=== PATIENT | male | born 1945 | race Caucasian/White ===

== ENCOUNTER 2018-09-07 09:21 | Outpatient (CLI) | payer OTHER, SELFPAY ==
[2018-09-07 10:35] LABS: CREATININE 0.94 mg/dL (0.70-1.30); Glucose 124 mg/dL (70-100); Potassium 4.2 mmol/L (3.5-5.1)
== END 2018-09-07 09:41 ==
PROVIDERS: PCP Emergency Medicine; Visit Provider General Practice
DX: R73.03 Prediabetes (principal); I10 Essential (primary) hypertension
CPT/HCPCS: 36415; 82947; 82565; 84132

== ENCOUNTER 2019-08-22 10:01 | Outpatient (CLI) | payer OTHER, SELFPAY ==
--- NOTE | 2019-08-22 | DI.RAD_ITS ---
EXAM: XR CHEST 2V PA LATERAL CLINICAL HISTORY: COUGH TECHNIQUE: 2D digital imaging was performed. COMPARISON: CHEST 2 VIEWS PA,LAT from 01/14/2010 FINDINGS: MEDIASTINUM: Normal. HEART: Normal. PULMONARY VASCULATURE: Normal. LUNGS: Clear. PLEURAL SPACE: No pleural effusion or pneumothorax. BONE:Unremarkable. OTHER FINDINGS:Normal. IMPRESSION: No acute pulmonary findings. DATA REPOSITORY: RADIATION DOSE DELIVERED:
== END 2019-08-22 10:21 ==
PROVIDERS: PCP General Practice; Visit Provider Physician Assistant
DX: R05 Cough (principal)
CPT/HCPCS: 71046

== ENCOUNTER 2019-08-25 10:43 | Outpatient (REF) | payer OTHER, SELFPAY ==
[2019-08-25 16:08] LABS: Anion Gap 6.7 mmol/L (3-11); BUN 14 mg/dL (7-18); CO2 30.3 mmol/L (21.0-32.0); CREATININE 1.12 mg/dL (0.70-1.30); Calcium 8.6 mg/dL (8.5-10.1); Calculated LDL 93 mg/dL (<100); Chloride 102 mmol/L (98-107); Cholesterol 160 mg/dL (<200); Glucose 237 mg/dL (74-106); HDL Cholesterol 44 mg/dL (40-60); Potassium 4.1 mmol/L (3.5-5.1); Sodium 139 mmol/L (136-145); Triglyceride 118 mg/dL (<150)
[2019-08-25 16:42] LABS: NT-proBNP 11 pg/mL (<300)
== END 2019-08-25 11:03 ==
LOC: NCHCN 10:43
PROVIDERS: PCP Physician Assistant; Visit Provider Physician Assistant
DX: R06.09 Other forms of dyspnea (principal)
CPT/HCPCS: 80048; 80061; 83880

== ENCOUNTER 2019-09-01 17:36 | Outpatient (REF) | payer OTHER, SELFPAY ==
[2019-09-04 18:41] LABS: Hemoglobin A1C 6.3 % (3.8-5.6)
== END 2019-09-01 17:56 ==
LOC: NCHCN 17:36
PROVIDERS: PCP Physician Assistant; Visit Provider Physician Assistant
DX: R73.9 Hyperglycemia, unspecified (principal)
CPT/HCPCS: 83036

== ENCOUNTER 2019-09-07 00:42 | Outpatient (CLI) | payer OTHER, SELFPAY ==
--- NOTE | 2019-09-07 | DI.NM_ITS ---
APPROVED REPORT Exam: Pharmacologic Patient Location: Out-Patient Room/Bed: Stress Nurse: Gaye Ross RN BMI: 43.59 Baseline Rhythm: Sinus Rhythm Indications: Dyspnea on exertion Medical History Cardiac Medications: Metoprolol. Pravastatin. Lisinopril. Aspirin. Amlodipine., Allergies: No known drug allergies Cardiac Risk Factors: HTN, Hyperlipidemia, DM Pretest Chest Pain Characteristics: Dyspnea Exercise History: Indeterminate Physical Disabilities: Back Lung Sounds: Clear to auscultation Heart Sounds: Regular Stress Test Details Test: Pharmacologic stress testing performed using 0.4 mg of regadenoson per 5 mL given IV over 10 s econds. Nuclear Acquisition: Rest Tc-99m/Stress Tc-99m 1 day Rest Isotope: Tc-99m Sestamibi. Dose: 12.0 Date: 09/07/2019 Injection Time: 0830 Stress Isotope: Tc-99m Sestamibi. Dose: 37.6 Date: 09/07/2019 Injection Time: 1025 HR Resting HR Supine: 83 bpm Max Heart Rate (APMHR): 148 bpm Target HR (85% APMHR): 125 bpm Max HR Achieved: 94 bpm % of APMHR: 63 Recovery HR: 91 bpm HR response to stress: Normal HR response to stress BP Resting BP Supine: 140/88 mmHg Max BP: 148/80 mmHg BP response to stress: Normal blood pressure response to stress. ECG Resting ECG: Sinus Rhythm Stress ECG: Sinus Rhythm ST Change: No significant ST segment changes post lexiscan injection Arrhythmia: None Recovery ECG: Sinus Rhythm Clinical Stress Symptoms: No significant side effects post lexiscan injection. Exercise duration: 6 min47 sec Stress ECG Conclusion 1. A pharmacological stress test. 2. The patient no symptoms suggestive of ischemia. 3. The EKG portion of this exam is nondiagnostic. Stress Test Summary STAGE HR BP Symptoms NOTES Supine 83 140/88 1 min post Lexiscan injection 94 144/86 3 min post Lexiscan injection 93 148/80 6 min post Lexiscan injection 91 144/88 MPI Conclusion Ejection fraction with stress was 49%. There were no wall motion abnormalities. There were no significant perfusion defects visualized on the imaging portion of this exam. This represents a normal SPECT stress test.
[2019-09-07] MEDS: Regadenoson 0.4 MG/5 ML SYR IVP (10:08)
== END 2019-09-07 01:02 ==
PROVIDERS: PCP Physician Assistant; Visit Provider Physician Assistant
DX: R06.09 Other forms of dyspnea (principal); I10 Essential (primary) hypertension; E78.5 Hyperlipidemia, unspecified; E11.9 Type 2 diabetes mellitus without complications
CPT/HCPCS: 78452; 93016; 93018; 93017; J2785

== ENCOUNTER 2020-02-12 18:09 | Outpatient (REF) | payer OTHER, SELFPAY ==
[2020-02-12 19:05] LABS: Hemoglobin A1C 6.4 % (<5.7)
== END 2020-02-12 18:29 ==
LOC: NCHCN 18:09
PROVIDERS: PCP Physician Assistant; Visit Provider Physician Assistant
DX: E11.9 Type 2 diabetes mellitus without complications (principal)
CPT/HCPCS: 83036

== ENCOUNTER 2020-04-15 08:46 | Emergency (ER) | payer OTHER, SELFPAY ==
[2020-04-15] VITALS (11 sets, daily range): BP systolic 133–149; BP diastolic 81–100; PULSE 81–90; RESP 16–26; TEMP 36.5; O2SAT 93–95
--- NOTE | 2020-04-15 08:48 | ED.GENADUL_ITS ---
Discharge Plan Disposition Patient Disposition: HOME Condition: Improving Discharge Details Clinical Impression: Contusion of rib on left side Primary Care Provider: Jonathon Frederick ED Provider: Deborah Glover Home Meds and New Rx's Prescriptions: New oxycodone 5 mg tablet 5 mg PO Q6H PRN (Reason: pain) Qty: 10 RF: 0 Continued multivitamin [Once Daily] 1 EACH tablet 1 tab PO DAILY RF: 0 latanoprost [Xalatan] 2.5 ML drops 1 drp Ophthalmic DIRECTED RF: 0 aspirin [Aspirin Low-Strength] 81 MG tablet,chewable 81 mg PO DAILY RF: 0 pravastatin [Pravachol] 20 MG tablet 1 tab PO DAILY Qty: 90 RF: 4 lisinopril 20 MG tablet 1 tab PO DAILY Qty: 90 RF: 4 amlodipine [Norvasc] 5 MG tablet 1 tab PO QAM Qty: 90 RF: 4 allopurinol 100 MG tablet 2 tab PO DAILY Qty: 180 RF: 4 timolol maleate [Timoptic] 5 ML drops 1 drp Ophthalmic HS RF: 0 ibuprofen 200 MG tablet 200 mg PO DIRECTED PRNRF: 0 metoprolol succinate 50 mg tablet extended release 24 hr 50 mg PO DAILY RF: 0 furosemide 20 mg tablet 20 mg PO DAILY RF: 0 Discharge Instructions Instructions: Rib Fracture (ED), Rib Contusion (ED) Additional Instructions: Your x-ray was negative for rib fracture, pneumonia or lung collapse. X-rays may not see a rib fracture but clinically you may have a rib fracture. A rib fracture is treated the same as a rib bruise with pain control, incentive spirometry to ensure that you are taking deep breath, and ice. Use the incentive parameter as directed to ensure that you are taking deep breaths to prevent pneumonia. Alternate tylenol and motrin as needed and directed for pain. Take the oxycodone for pain not relieved with Tylenol and Motrin. You can also continue Lidoderm patches [id number] as needed and directed for pain. Follow-up with your primary care doctor in 1 week. Return to the emergency department with any worsening or new concerning symptoms. Discharge Data Discharge Date/Time-TO BE ENTERED AT DEPARTURE: 04/15/20 11:04 Discharge Physician: Deborah Glover Medical Decision Making 74-year-old male with a history of hypertension, hyperlipidemia, obesity presents with left lower rib pain after pushing against a toilet while fixing it 3 days ago. Vitals within normal limits. He appears nontoxic. His tenderness to palpation of the left anterior inferior ribs without evidence of trauma, crepitus or cellulitis. Lungs are clear bilaterally. His abdomen is soft and nontender. Suspect most likely rib contusion versus fracture. Will obtain a chest and rib x-ray to rule out pneumothorax or pneumonia and place Lidoderm patch, give p.o. Motrin and oxycodone and reassess. is driving patient home. Ribs and PA lateral chest x-ray negative for rib fracture and does note platelike atelectasis which could be consistent with decreased aeration due to pain with deep breath. No pneumothorax or pneumonia. Patient reassessed and he had significant improvement in pain. Patient feels comfortable for discharge home. He was given incentive spirometer. Advised to follow up with the primary care doctor for re-evaluation. Usual and customary return precautions given prior to discharge. Medical Records Medical records reviewed: Yes I reviewed the patient's medical records. Imaging Data Radiologic Study: Radiologist's impression: XR RIBS LT W PA LAT CHEST CLINICAL HISTORY: L lower anterior rib pain, r/o fx TECHNIQUE: 2D digital imaging was performed. COMPARISON: CR XR CHEST 2V PA LATERAL from 08/22/2019 FINDINGS: No obvious left rib fractures. Heart size upper normal. Platelike atelectasis noted left lung base but no consult lung infiltrates. No pneumothorax. No pleural effusions. IMPRESSION: 1. No left rib fracture noted. 2. Platelike atelectasis in the left lung base noted. There is no pneumothorax. ECG Data Attestation: I personally reviewed and interpreted this ECG (s) as follows: Interpretation: Rate of 85, sinus, borderline ST elevation in V1 and V2 which has been seen in previous EKG from 2014. No other acute ST findings. GA 174. QRS 93. QTc 442. HPI General Mode of arrival: ambulatory . Date/Time Provider Initiated Documentation: 04/15/20 08:47 . Limitations to Documentation: no limitations . Information obtained by: patient . HPI Narrative: Patient is a 74-year-old male who presents with left rib pain for the past 4 days after leaning over fixing a toilet and feeling a crack against his ribs. 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 He states he has had pain with movement and deep breath since then. He has taken ibuprofen and Tylenol for pain without relief. He denies any fever, nausea, vomiting, abdominal pain, diarrhea and states he has been able to eat normally. Related Data Home Medications Medication Instructions Recorded Confirmed latanoprost [Xalatan] 1 drp OPHTHALMIC DIRECTED drp 09/12/12 04/15/20 multivitamin [Once Daily] 1 tab PO DAILY 09/12/12 04/15/20 timolol maleate [Timoptic] 1 drp OPHTHALMIC HS 11/15/13 04/15/20 ibuprofen 200 mg PO DIRECTED PRN 11/16/13 04/15/20 aspirin [Aspirin Low-Strength] 81 mg PO DAILY tab-cap 11/02/14 04/15/20 pravastatin [Pravachol] 1 tab PO DAILY #90 tab-cap 03/02/17 04/15/20 allopurinol 2 tab PO DAILY #180 tab 09/21/17 04/15/20 amlodipine [Norvasc] 1 tab PO QAM #90 tab 09/21/17 04/15/20 lisinopril 1 tab PO DAILY #90 tab 09/21/17 04/15/20 furosemide 20 mg PO DAILY 04/15/20 04/15/20 metoprolol succinate 50 mg PO DAILY 04/15/20 04/15/20 oxycodone 5 mg PO Q6H PRN #10 tab 04/15/20 Previous Rx's Medication Instructions Recorded pravastatin [Pravachol] 1 tab PO DAILY #90 tab-cap 03/02/17 allopurinol 2 tab PO DAILY #180 tab 09/21/17 amlodipine [Norvasc] 1 tab PO QAM #90 tab 09/21/17 lisinopril 1 tab PO DAILY #90 tab 09/21/17 oxycodone 5 mg PO Q6H PRN #10 tab 04/15/20 Allergies Allergy/AdvReac Type Severity Reaction Status Date / Time No Known Allergies Allergy Unverified 04/15/20 08:59 Review of Systems All systems reviewed & are unremarkable except as noted in HPI and below Constitutional Constitutional: Reports as per HPI, Denies chills and Denies fever(s) Eyes Eyes: Denies blurry vision ENT Ears, Nose, Mouth, and Throat: Denies dizziness, Denies sore throat and Denies throat swelling Cardiovascular Cardiovascular: Denies chest pain and Denies dyspnea Respiratory Respiratory: Denies cough and Denies dyspnea Gastrointestinal Gastrointestinal: Denies abdominal pain, Denies diarrhea and Denies vomiting Genitourinary Genitourinary: Denies hematuria and Denies dysuria Musculoskeletal Musculoskeletal: Denies back pain, Denies numbness and Reports other (L rib pain) Integumentary/Breasts Skin/Breast: Denies lesions and Denies rash Neurologic Neurologic: Denies dizziness, Denies localized weakness and Denies numbness Allergic/Immunologic Allergic/Immunologic: Denies throat swelling [facility] Medical History (Updated 04/15/20 @ 10:40 by Deborah Glover DO) Alcohol abuse Glaucoma Gout Hyperlipidemia (09/13/12) Hypertension Impotence Obesity Osteoarthritis left leg Rotator cuff syndrome (10/05/08) Tubular adenoma 5 tubular adenomas 2008 1 TUBULAR ADENOMA 2012 tubular adenoma with focal high grade dysplasia, 12/11/16; DR. CORTES Surgical History Colonoscopy - MAC (12/02/11) Colonoscopy - MAC (12/11/16) hernia repair left Kidney Stone Extraction Family History Mother Diabetes Stroke Father Myocardial infarction Sister Hypothyroidism Grandfather Myocardial infarction Grandfather Myocardial infarction Grandmother No problems noted. Grandmother No problems noted. Brother No problems noted. Social History Smoking/Tobacco Use Status: Never Smoking risk assessment performed?: Yes Drug use: Never Substance use type: does not use Exam Const General: cooperative, healthy appearing and no acute distress [facility] Head: normal to inspection Face and sinus: normal facial exam Eyes General: appearance normal, both eyes and all related structures EOM: EOM intact bilaterally Neck Neck: normal visual inspection and No submandibular swelling Lymphatic: no lymphadenopathy noted Chest Chest: normal inspection of the chest and tenderness Chest/axillae images: 1. Tenderness to palpation of L anterior inferior chest w/o crepitus, edema, erythema, ecchymoses, or abrasion. Resp Effort & Inspection: normal respiratory effort and able to speak in complete sentences Auscultation: clear to auscultation bilaterally Cardio Rate: regular rate Rhythm: regular rhythm GI Inspection: normal to inspection, no abdominal wall ecchymosis and obesity Palpation: soft, not firm, not rigid and nontender Auscultation: normal bowel sounds Skin General skin exam: no rashes or lesions noted Neuro General: patient alert, patient awake and patient oriented x3 Cognition: normal cognition Speech: speech normal Motor: muscle tone normal throughout Sensory Exam: no sensory deficits noted Extrem General: normal to inspection, full ROM, capillary refill normal, no calf tenderness bilaterally and no edema Psych Appearance: grossly normal Mental Status: mental status grossly normal Speech and Movement: speech and movement normal Affect: normal affect
--- NOTE | 2020-04-15 09:00 | RT.EKG_ITS ---
APPROVED REPORT Exam: Resting ECG Patient Location: E HR:85 bpm ECG Measurements Heart Rate [address] 174 P 24 QRSd 93 QRS 49 QT 371 T 49 QTc 442 Conclusion Sinus rhythm...normal P axis, V-rate 60- [address] elevation, anterior leads...ST >0.15mV in V1-V4. No STEMI. No significant change compared to previous 2013.
--- NOTE | 2020-04-15 09:15 | DI.RAD_ITS ---
EXAM: XR RIBS LT W PA LAT CHEST CLINICAL HISTORY: L lower anterior rib pain, r/o fx TECHNIQUE: 2D digital imaging was performed. COMPARISON: CR XR CHEST 2V PA LATERAL from 08/22/2019 FINDINGS: No obvious left rib fractures. Heart size upper normal. Platelike atelectasis noted left lung base but no consult lung infiltrates. No pneumothorax. No pleural effusions. IMPRESSION: 1. No left rib fracture noted. 2. Platelike atelectasis in the left lung base noted. There is no pneumothorax. DATA REPOSITORY: RADIATION DOSE DELIVERED:
[2020-04-15] MEDS: Ibuprofen 600 MG TAB PO (09:29)
[2020-04-15] MEDS: Lidocaine 5% Patch 1 PATCH TP (09:29)
[2020-04-15] MEDS: oxyCODONE 5 MG TAB PO (09:30)
== END 2020-04-15 11:04 | disposition home or self-care (01) ==
PROVIDERS: Emergency Provider Physician Assistant; PCP Physician Assistant
DX: S20.212A Contusion of left front wall of thorax, initial encounter (principal); X50.9XXA Other and unspecified overexertion or strenuous movements or postures, initial encounter; J98.11 Atelectasis; I10 Essential (primary) hypertension
CPT/HCPCS: 93005; 99284; 71046; 71100; 93010

== ENCOUNTER 2020-11-27 13:54 | Outpatient (CLI) | payer OTHER, SELFPAY ==
--- NOTE | 2020-11-27 | DI.CT_ITS ---
Exam(s) CT RENAL COLIC WO EXAM: CT RENAL COLIC WO CLINICAL HISTORY: RENAL COLIC, N23, LT RENAL COLIC, SUSPECT STONE. TECHNIQUE: Imaging Protocol: Axial computed tomography images with coronal and sagittal reformatted images were created and reviewed CONTRAST MATERIAL: Intravenous: none Oral: None COMPARISON: Prior CT scan December 2015 FINDINGS: VISUALIZED LUNG BASES: No nodules nor pleural effusions evident. ABDOMEN: There is no ascites. LIVER: There are no obvious focal hepatic lesions evident of this noninfused study. GALLBLADDER/BILIARY: There are multiple gallstones again noted in the gallbladder lumen. Gallbladder is not distended nor edematous. There is no pericholecystic fluid. The CBD is not dilated. PANCREAS: No evidence of pancreatic mass nor dilatation of the pancreatic duct. SPLEEN: Spleen is not enlarged. No obvious intrasplenic lesions. ADRENALS: There are no significant adrenal masses. KIDNEYS:Previously present calculi in the right kidney no longer seen no hydronephrosis nor hydrouret er nor calculi in urinary bladder. There are cysts again noted in the left kidney as well as multipl e calculi seen within the left kidney now evident. Left ureter is not dilated but there is some stre aking around it and there is a calculus in the left ureter which measures 5 x 4 millimeters, this in the pelvic ureter adjacent to the iliac vessels. Ureter below this level is not dilated. Ureteroves ical junction unremarkable there are no calculi in the nondistended urinary bladder.. ABDOMINAL AORTA: Abdominal aorta is not enlarged. LYMPH NODES: There is no retroperitoneal nor paraaortic adenopathy. ABDOMINAL WALL: No evidence of significant anterior abdominal wall hernia. GI: There is no evidence of bowel obstruction, free air, nor abscess. PELVIS: LYMPH NODES: There is no intrapelvic nor inguinal adenopathy. GI: No evidence of appendicitis.Again noted is sigmoid diverticulosis but without obvious acute diver ticulitis evident at this time. URINARY BLADDER: No calculi nor obvious masses evident REPRODUCTIVE: Prostate size upper normal. Seminal vesicles unremarkable. OSSEOUS: No significant osseous lesions. Chronic degenerative disc disease L4-5 level with advanced disc space narrowing at this level and pos terior bony ridging. IMPRESSION: 1. There is a 5 millimeter calculus within the left ureter at the level of the iliac vessels. There is mild dilatation of collecting system above this level and [place] ureteral streaking. No other calcu li within the left ureter nor within the urinary bladder. However, there are 2 remaining calculi in left kidney, this in addition to previously described prominent cysts in left kidney. 2. Previously present calculi in the opposite-right kidney are no longer seen. 3. Cholelithiasis. Multiple gallstones. No evidence of acute cholecystitis nor dilatation of the bi liary tree. 4. Sigmoid diverticulosis but no evidence of obvious acute diverticulitis. RADIATION DOSE DELIVERED: 1,353.5mGy.cm Total DLP DATA REPOSITORY: All CT scans at this facility are submitted to the National Radiology Data Registry (NRDR) Dose Index Registry (DIR) with the [employer] (ACR). RADIATION OPTIMIZATION: All CT scans at this facility use at least one of these dose optimization te chniques: automated exposure control; mA and/or kV adjustment per patient size (includes targeted exa ms where dose is matched to clinical indication); or iterative reconstruction.
== END 2020-11-27 14:14 ==
PROVIDERS: PCP Physician Assistant; Visit Provider Physician Assistant
DX: N23 Unspecified renal colic (principal); N20.2 Calculus of kidney with calculus of ureter; K80.20 Calculus of gallbladder without cholecystitis without obstruction; K57.30 Diverticulosis of large intestine without perforation or abscess without bleeding; N28.1 Cyst of kidney, acquired
CPT/HCPCS: 74176

== ENCOUNTER 2021-01-28 18:27 | Outpatient (REF) | payer OTHER, SELFPAY ==
[2021-01-28 17:23] LABS: COMMENT (LAB VIEW ONLY) 223.56 mg/dL
== END 2021-01-28 18:28 | disposition home or self-care (01) ==
LOC: NCHCN 18:27
PROVIDERS: PCP Physician Assistant; Visit Provider Physician Assistant
DX: E11.9 Type 2 diabetes mellitus without complications (principal); I10 Essential (primary) hypertension; E78.5 Hyperlipidemia, unspecified
CPT/HCPCS: 82043; 82570

== ENCOUNTER → 2021-10-03 10:19 | Outpatient (BNVA) | payer MEDICARE, SELFPAY | PROVIDERS: PCP Physician Assistant; Referring Provider Physician Assistant; Visit Provider Physical Therapy Assistant | DX: Z12.11 Encounter for screening for malignant neoplasm of colon (principal); Z86.010 Personal history of colon polyps ==

== ENCOUNTER 2021-10-13 08:16 | Day surgery (SDC) | payer MEDICARE, SELFPAY ==
--- NOTE | 2021-10-13 06:24 | W.ANESPRE ---
General Info Date of Service Date Performed: 10/13/21 Height: 5 ft 5 in Weight: 112.718 kg Body Mass Index (BMI): 41.3 Surgical Procedure: Operation Date: 10/13/21 09:50 Proposed Procedure Side Surgeon jorge Jameson MD Meds Allergies and Home Medications Allergies Allergy/AdvReac Type Severity Reaction Status Date / Time No Known Allergies Allergy Unverified 10/13/21 08:36 Home Medication Medication Instructions Recorded latanoprost 0.005 % eye drops 1 drp ophthalmic (eye) DIRECTED 09/12/12 (Xalatan) multivitamin (Once Daily tablet) 1 tab PO DAILY 09/12/12 timolol maleate 0.25 % eye drops 1 drp ophthalmic (eye) HS 11/15/13 (Timoptic) ibuprofen 200 mg tablet 200 mg PO DIRECTED PRN 11/16/13 aspirin 81 mg chewable tablet 81 mg PO DAILY 11/02/14 (Aspirin Low-Strength) pravastatin 20 mg tablet 1 tab PO DAILY #90 tab-caps 03/02/17 (Pravachol) allopurinol 100 mg tablet 2 tab PO DAILY #180 tabs 09/21/17 amlodipine 5 mg tablet (Norvasc) 1 tab PO QAM #90 tabs 09/21/17 lisinopril 20 mg tablet 1 tab PO DAILY #90 tabs 09/21/17 furosemide 20 mg tablet 20 mg PO DAILY 04/15/20 metoprolol succinate 50 mg 50 mg PO DAILY 04/15/20 tablet,extended release 24 hr bisacodyl 5 mg tablet,delayed 5 mg PO ONCE #4 tabs 10/03/21 release (Dulcolax (bisacodyl)) polyethylene glycol 3350 17 17 g PO ONCE #238 grams 10/03/21 gram/dose oral powder Current Visit Medications: Current Medications Generic Name Dose Route Start Last Admin Trade Name Freq PRN Reason Stop Dose Admin Ringer's Solution 1,000 mls @ 80 mls/hr 10/13/21 06:00 IV 11/06/21 23:59 INFUSION CALVIN IV Miscellaneous Supplies 1 each 10/13/21 06:00 Iv Access IV 11/06/21 23:59 DIRECTED CALVIN Sodium Chloride 0 ml 10/13/21 06:00 Normal Saline Flush 10 Ml Syr IV 11/06/21 23:59 PRN PRN Sodium Chloride 0 ml 10/13/21 06:00 Normal Saline 10 Ml Vial IJ 11/06/21 23:59 DIRECTED PRN Sterile Water 0 ml 10/13/21 06:00 Water,Injection,Sterile 10 Ml Vial IJ 11/06/21 23:59 DIRECTED PRN PFSH Active Problems Active Problems: Problem Status Onset Code Screening for colon cancer Z12.11 Kidney stone 01/23/14 N20.0 Impotence of organic origin N52.9 Elevated glucose 01/23/14 R73.09 Medical History Medical History Alcohol abuse Alcohol abuse Cholelithiasis without obstruction Clostridium difficile diarrhea (01/31/16) Glaucoma Gout Hyperlipidemia (09/13/12) Hypertension Impotence Kidney stone (09/12/12) Obesity Osteoarthritis left leg Rotator cuff syndrome (10/05/08) Tubular adenoma 5 tubular adenomas 2008 1 TUBULAR ADENOMA 2011 tubular adenoma with focal high grade dysplasia, 12/11/16; DR. CORTES Surgical History Surgical History Colonoscopy - MAC (12/02/11) Colonoscopy - MAC (12/11/16) hernia repair left History of extraction of renal calculus Kidney Stone Extraction Status post inguinal hernia repair Tobacco Smoking/Tobacco Use Status: Never Alcohol Alcohol Intake: current Alcohol intake frequency: 0-2 drinks per day Alcohol type: wine and hard liquor Substance Use Substance use: Never Substance use type: does not use Vital Signs and Lab Results Vital Signs Most Recent Vital Signs in EMR: Temp Pulse Resp BP Pulse Ox 37.0 C 95 H 17 131/85 96 10/13/21 08:28 10/13/21 08:28 10/13/21 08:28 10/13/21 08:28 10/13/21 08:28 Lab Results Blood Type / Crossmatch: No Data to Display Complete Blood Count: No Data to Display Complete Metabolic Panel: No Data to Display Liver Function Panel: No Data to Display Coagulation Panel: No Data to Display Cardiac Panel: No Data to Display Arterial Blood Gas: No Data to Display Venous Blood Gas: No Data to Display Pancreas Panel: No Data to Display Thyroid Panel: No Data to Display Infectious Disease: No Data to Display Blood Cultures: No Data to Display Toxicology Panel: No Data to Display Imaging and Studies Imaging and Studies Study information below may be from another EMR and interpreted by another provider. Please see original notes in EMR for more complete details. EKG Summary: 2019: sinus, borderline St elevation ant leads. Stress Test Summary: 2020: no symptoms of ischemia, EF 49%, no WMA, no perfusion defects. Anesthesia Assessment and Plan Anesthesia History Personal History: No History of Anesthesia Complications Family History: No Family History of Anesthesia Complications Exercise Tolerance Exercise Tolerance: Metabolic Equivalents>4 Pertinent Negatives Pertinent Negatives: No Symptoms of GERD, No Major Cardiovascular Symptoms or Complaints, No Major Pulmonary Symptoms or Complaints and No History of CVA/TIA Cardiac & Pulmonary Exam Cardiac Exam: Normal S1/S2 Heart Sounds Pulmonary Exam: Clear Bilateral Breath Sounds Implantable Cardiac Device Does patient have a Pacemaker or an ICD?: No Airway Exam Known Difficult Airway: No Mallampati Class: 2 Mouth Opening: Normal (> 3cm) Thyromental Distance: Greater than 3 cm Facial Hair: Full [place]ck Range of Motion: Full ROM Neck Circumference: Thick Teeth Condition: Normal Dentition Airway Comments: Few teeth removed in back molars ASA Classification ASA Score: ASA 3 Emergency Case?: No NPO Status NPO Status: NPO Clears >2 hours, Solids >8 hours Anesthesia Plan Resuscitation Status: Full Code Anesthesia Technique: General Anesthesia Airway Planned: Natural Airway Monitors Used: Standard Monitors Preoperative Comments:: 76 yo male with history of polyps for colonoscopy. Sig PMHx: never smoker, daily EToH, HTN (amlodipine, furosemide, lisinopril, metoprolol), Previous Anes: colo with prop, no issues.
--- NOTE | 2021-10-13 07:02 | COLE_ITS ---
Colonoscopy Report Date of procedure: 10/13/21 Pre-op diagnosis general: Hx of polyps Post-op diagnosis procedure note: other (severe luna-diverticulosis and polyps) Procedure: Colonoscopy with polypectomy Surgeon: Tasha Jameson Anesthesia Type: General:No Airway Estimated blood loss (mL): 3 Pathology: other (ascending polyps, transverse polyp x2, descending polyp) Complications: None Disposition: same day Indications: The patient is here for Colonoscopy pre-op.?His last screening was in 2017, which was remarkable for tubular adenoma with focal high grade dysplasia with 1 year f/u recommended.?She has not had any bowel habit changes. -Discussed colonoscopy bowel prep as well as the procedure. Discussed possible complications of the procedure to include bleeding, pain, perforation, missed small lesion/polyp, sore throat, aspiration and adverse reaction to the medications. Questions were answered to patient?s satisfaction. No guarantees were implied or given.? Prep: Miralax/Dulcolax Procedure Start Time: 10:05 Procedure End Time: 11:05 Retraction Time: 40 minutes Findings: severe diverticulosis of the entire colon worse on the left. Diverticula were very large 4 polyps Procedure Description: After informed consent was obtained the patient was taken to the procedure room and placed in a left decubitous position. Monitors were applied and a time out was done. The patients name, date of , procedure, allergies to medications and metal in their body was reviewed. The patient was then sedated. Once sedated and comfortable a rectal exam was done. External exam was normal. Internal exam revealed a normal sphincter tone and no palpable masses. The prostate felt smooth. The scope was then introduced and retro-flexed. No internal hemorrhoids, polyps or masses were identified on retro-flexion. The scope was then advanced to the cecum with difficulty due to severe diverticulosis and a tortuous colon. The ileocecal vlave and appendiceal orifice were identified. The prep was adequate. The scope was then slowly retracted over 40 minutes back into the rectum. Polyps were removed with cold forceps in the transverse and descending colo and with a hot snare in the ascending colon. There was severe luna-diverticulosis not ed. The scope was removed and the patient was woken up and taken back to Same day surgery in stable condition. The patient tolerated the procedure well and there were no immediate complications. Follow up: The patient should follow up in 3-5 years unless they develop changes in bowel habits or other new gastrointestinal complaints.
--- NOTE | 2021-10-13 07:03 | W.PM.DSUDISC ---
Discharge Plan Disposition Patient Disposition: HOME Condition: Good Discharge Details Reason For Visit: Colonoscopy Attending Provider: Tasha Jameson Primary Care Provider: Jonathon Frederick Home Meds and New Rx's Prescriptions: Continued multivitamin [Once Daily] 1 EACH tablet 1 tab PO DAILY latanoprost [Xalatan] 2.5 ML drops 1 drp Ophthalmic DIRECTED Label Comments: left eye aspirin [Aspirin Low-Strength] 81 MG tablet,chewable 81 mg PO DAILY pravastatin [Pravachol] 20 MG tablet 1 tab PO DAILY Qty: 90 4RF lisinopril 20 MG tablet 1 tab PO DAILY Qty: 90 4RF amlodipine [Norvasc] 5 MG tablet 1 tab PO QAM Qty: 90 4RF allopurinol 100 MG tablet 2 tab PO DAILY Qty: 180 4RF timolol maleate [Timoptic] 5 ML drops 1 drp Ophthalmic HS Label Comments: left eye ibuprofen 200 MG tablet 200 mg PO DIRECTED PRN metoprolol succinate 50 mg tablet extended release 24 hr 50 mg PO DAILY furosemide 20 mg tablet 20 mg PO DAILY Discontinued bisacodyl [Dulcolax (bisacodyl)] 5 mg tablet,delayed release (DR/EC) 5 mg PO ONCE Qty: 4 0RF Rx Instructions: Take according to provider's instructions for colonoscopy prep. polyethylene glycol 3350 17 gram/dose powder 17 g PO ONCE Qty: 238 0RF Rx Instructions: To be taken as directed by prescriber's office for colonoscopy prep. Discharge Instructions Instructions: Diverticulosis (DC), Colorectal Polyps (DC) Additional Instructions: Findings: Severe diverticulosis polyps Follow up: 3-5 years depending on the pathology results. Please call if you develop: fevers >101.5 Nausea or Vomiting Abdominal pain that is not transient Rectal bleeding that is more then a tbsp A hard abdomen and inability to pass gas DAY SURGERY UNIT POST ENDOSCOPY INSTRUCTIONS Instructions for everyone who is given Anesthesia: For your safety, please do the following for the next 24 Hours: a. Do not drive or operate dangerous equipment b. Do not drink alcohol beverages or use any recreational drugs for the first 24 hours or while taking pain medications. The medications in your body may have a reaction that can be dangerous. c. Do not make any important decisions or sign any important papers 1. Generally there are no restrictions on your activity after a day or so has gone by, but you may feel a bit fatigued for a few days. 2. After you arrive home you may have a light meal and return to a normal diet as you can tolerate it without feeling sick to your stomach. 3. After surgery, you may feel pain or discomfort. This should be only transient, but if it persists please contact your doctor. 4. If there are any questions regarding the findings of your procedure, please feel free to contact your doctor. 6. If you are unable to contact your doctor with a problem, contact the hospital at [phone]. 7. Continue all your regular medications unless directed otherwise. I understand the above instructions and have no questions. Signature of Patient or Responsible Adult Escort Date/Time Name of Responsible Adult Escort Signature of Nurse Date/Time Activity:: Activity as Tolerated Diet:: high fiber diet Discharge Orders Discharge Orders: Discharge Order (Routine); Ordered 10/13/21 Ordered By: Tasha Jameson
[2021-10-13 08:28] VITALS: BP 131/85; PULSE 95; RESP 17; TEMP 37; O2SAT 96
[2021-10-13 09:55] VITALS: BMI 41.3
[2021-10-13] MEDS: Lactated Ringers 1,000 ML 80 ML IV (09:57)
--- NOTE | 2021-10-13 10:30 | BOWEL_PTH ---
PATIENT: Harvey Camilo LOC: [facility] U#:[id number] AGE/SX: 76/M ROOM: RE10/13/[address]: Tasha Jameson MD : [id number] BED: DIS: 10/13/2021 SPEC #: [id number] RECD: 10/13/21 12:46 STATUS: BASILIO REQ #: [id number] KAROL: 10/13/21 10:[address]: Tasha Jameson DEPT: Surgical Specimen RECD BY: Vanessa Avila ENTERED: 10/13/21 12:47 SP TYPE: Bowel OTHR DR: Jonathon Frederick Tissues: 1 - BIOPSY BOWEL 2 - BIOPSY BOWEL 3 - BIOPSY BOWEL Procedures: GROSS AND MICRO LEVEL 4 Comments: [id number]
[2021-10-13 11:12] VITALS: BP 88/69; PULSE 89; RESP 17; TEMP 36.6; O2SAT 94
[2021-10-13 11:43] VITALS: BP 104/75; PULSE 90; RESP 17; TEMP 36.7; O2SAT 93
--- NOTE | 2021-10-13 11:47 | W.ANESPOSTOP ---
Postoperative Evaluation Date, Time and Location Date Performed: 10/13/21 Time Performed: 11:43 Patient Location: Day Surgery Unit Vital Signs Most Recent Imported Vital Signs: Most Recent Vital Signs Temp Pulse Resp BP Pulse Ox 36.7 C 90 17 104/75 93 10/13/21 11:43 10/13/21 11:43 10/13/21 11:43 10/13/21 11:43 10/13/21 11:43 Assessment Mental Status: Awake (Alert & Oriented to Patient Baseline) Airway and Respiratory Function: Patent airway with normal (patient baseline) respiratory exam Cardiovascular Function: Hemodynamically Stable Hydration Status: Adequately Hydrated Nausea & Vomiting: No Nausea or Vomiting Pain: Pt. Denies Any Pain Peripheral Nerve Block: Patient did not receive a nerve block
== END 2021-10-13 12:25 | disposition home or self-care (01) ==
PROVIDERS: PCP Physician Assistant; Visit Provider Surgery
PROC: 0DJD8ZZ Inspection of Lower Intestinal Tract, Via Natural or Artificial Opening Endoscopic (ICD-10-PCS; CPT 45378; principal; 2021-10-13 09:45)
DX: Z12.11 Encounter for screening for malignant neoplasm of colon (principal); Z86.010 Personal history of colon polyps; I10 Essential (primary) hypertension; E66.9 Obesity, unspecified; K63.5 Polyp of colon; K57.30 Diverticulosis of large intestine without perforation or abscess without bleeding
CPT/HCPCS: 45385; 45380; 88305; J2704

== ENCOUNTER 2021-10-23 03:59 | Outpatient (CLI) | payer MEDICARE, SELFPAY ==
[2021-10-23 10:05] LABS: Hemoglobin A1C 8.6 % (<5.7)
[2021-10-23 10:50] LABS: COMMENT (LAB VIEW ONLY) 197.92 mg/dL; Microalb ug/mg Crea 10.6 ug/mg Cr
[2021-10-23 10:57] LABS: ALT 20 U/L (16-63); AST 11 U/L (15-37); Albumin 3.5 g/dL (3.4-5.0); Alkaline Phosphatase 83 U/L (46-116); Anion Gap 7.5 mmol/L (3-11); BUN 16 mg/dL (7-18); Bilirubin, Total 0.8 mg/dL (0.2-1.0); CO2 27.5 mmol/L (21.0-32.0); CREATININE 1.1 mg/dL (0.70-1.30); Calcium 9.1 mg/dL (8.5-10.1); Calculated LDL 94 mg/dL (<100); Chloride 101 mmol/L (98-107); Cholesterol 164 mg/dL (<200); Glucose 213 mg/dL (74-106); HDL Cholesterol 45 mg/dL (40-60); Potassium 3.9 mmol/L (3.5-5.1); Sodium 136 mmol/L (136-145); Total Protein 7.9 g/dL (6.4-8.2); Triglyceride 127 mg/dL (<150)
== END 2021-10-23 04:00 | disposition home or self-care (01) ==
LOC: LBO 03:59
PROVIDERS: PCP Physician Assistant; Visit Provider Physician Assistant
DX: E11.9 Type 2 diabetes mellitus without complications (principal); I10 Essential (primary) hypertension; E78.5 Hyperlipidemia, unspecified
CPT/HCPCS: 36415; 80053; 80061; 82043; 82570; 83036

== ENCOUNTER 2022-10-16 13:05 | Outpatient (REF) | payer MEDICARE, SELFPAY ==
[2022-10-16 16:00] LABS: Hemoglobin A1C 6.2 % (<5.7)
[2022-10-16 16:10] LABS: ALT 30 U/L (16-63); AST 19 U/L (15-37); Albumin 3.7 g/dL (3.4-5.0); Alkaline Phosphatase 69 U/L (46-116); Anion Gap 9.9 mmol/L (3-11); BUN 12 mg/dL (7-18); Bilirubin, Total 0.9 mg/dL (0.2-1.0); CO2 23.1 mmol/L (21.0-32.0); CREATININE 0.8 mg/dL (0.70-1.30); Calcium 8.9 mg/dL (8.5-10.1); Calculated LDL 101 mg/dL (<100); Chloride 104 mmol/L (98-107); Cholesterol 173 mg/dL (<200); Estimated GFR 92.29 (mL/min/1.73m2); Glucose 124 mg/dL (74-106); HDL Cholesterol 53 mg/dL (40-60); Potassium 4.2 mmol/L (3.5-5.1); Sodium 137 mmol/L (136-145); Total Protein 7.7 g/dL (6.4-8.2); Triglyceride 95 mg/dL (<150)
[2022-10-16 16:16] LABS: COMMENT (LAB VIEW ONLY) 82.72 mg/dL; Microalb ug/mg Crea 10.6 ug/mg Cr
== END 2022-10-16 13:06 | disposition home or self-care (01) ==
LOC: NCHCN 13:05
PROVIDERS: PCP Physician Assistant; Visit Provider Physician Assistant
DX: E11.9 Type 2 diabetes mellitus without complications (principal)
CPT/HCPCS: 80053; 80061; 82043; 82570; 83036

== ENCOUNTER 2023-10-11 10:05 | Outpatient (REF) | payer MEDICARE, SELFPAY ==
[2023-10-11 15:56] LABS: Hemoglobin A1C 6.1 % (<5.7)
[2023-10-11 16:09] LABS: ALT 23 U/L (16-63); AST 14 U/L (15-37); Albumin 3.6 g/dL (3.4-5.0); Alkaline Phosphatase 73 U/L (46-116); Anion Gap 9.9 mmol/L (3-11); BUN 12 mg/dL (7-18); Bilirubin, Total 1.3 mg/dL (0.2-1.0); CO2 25.1 mmol/L (21.0-32.0); CREATININE 0.8 mg/dL (0.70-1.30); Calculated LDL 65 mg/dL (<100); Chloride 105 mmol/L (98-107); Cholesterol 144 mg/dL (<200); Estimated GFR 91.72 (mL/min/1.73m2); Glucose 122 mg/dL (74-106); HDL Cholesterol 61 mg/dL (40-60); Potassium 4.1 mmol/L (3.5-5.1); Sodium 140 mmol/L (136-145); Total Protein 7.1 g/dL (6.4-8.2); Triglyceride 94 mg/dL (<150)
[2023-10-11 16:40] LABS: COMMENT (LAB VIEW ONLY) 93.27 mg/dL; Microalb ug/mg Crea 8.9 ug/mg Cr
== END 2023-10-11 10:06 | disposition home or self-care (01) ==
LOC: NCHCN 10:05
PROVIDERS: PCP Physician Assistant; Visit Provider Physician Assistant
DX: E11.9 Type 2 diabetes mellitus without complications (principal)
CPT/HCPCS: 80053; 80061; 82043; 82570; 83036

== ENCOUNTER 2023-12-06 11:35 | Outpatient (CLI) | payer MEDICARE, SELFPAY ==
--- NOTE | 2023-12-06 09:45 | DI.RAD_ITS ---
Exam(s) XR HIP RT COMPLETE AP PELVIS EXAM: XR HIP RT COMPLETE AP PELVIS CLINICAL HISTORY: RIGHT HIP PAIN. TECHNIQUE: 2D digital imaging was performed. Two views COMPARISON: No exams were available for comparison FINDINGS: BONES: No acute fracture is present. No bony destructive lesion is seen. JOINTS: No dislocation present. Mild bilateral hip joint space narrowing. No significant periartic ular spurring. SOFT TISSUE: Vascular calcifications. IMPRESSION: Mild degenerative changes. No acute abnormality. DATA REPOSITORY: RADIATION DOSE DELIVERED:
== END 2023-12-06 11:36 | disposition home or self-care (01) ==
LOC: DIORS 11:36
PROVIDERS: PCP Physician Assistant; Referring Provider Physician Assistant; Visit Provider Physician Assistant
DX: M53.3 Sacrococcygeal disorders, not elsewhere classified
CPT/HCPCS: 99213; 73502

== ENCOUNTER 2023-12-28 01:31 | Outpatient (CLI) | payer MEDICARE, SELFPAY ==
--- NOTE | 2023-12-28 07:15 | DI.MRI_ITS ---
Exam(s) MR LUMBAR SPINE WO EXAM: MR LUMBAR SPINE WO CLINICAL HISTORY: PAIN RT SI JOINT,M53.3,LOW BACK PAIN,M54.50. TECHNIQUE: Multiplanar multisequence MRI of the Lumbar spine was performed. COMPARISON: CT CT RENAL COLIC WO from 11/27/2020 CR XR HIP RT COMPLETE AP PELVIS from 12/06/2023 FINDINGS: Bones: The last intervertebral disc space is designated the L5/S1 level for the numbering purpose of this ex amination. The vertebral body heights are well maintained. Alignment: Unremarkable. The marrow signal characteristics are unremarkable. Cord: The conus tip ends at the T12 level. It is of normal size and signal intensity. T12-L1: No focal disc herniation is present. No central spinal canal stenosis.No neural foraminal st enosis. L1-2: No focal disc herniation is present. No central spinal canal stenosis.No neural foraminal sten osis. L2-3: No focal disc herniation is present. No central spinal canal stenosis.No neural foraminal rae nosis. L3-4: No focal disc herniation is present. No central spinal canal stenosis.No neural foraminal rae nosis. L4-5:Severe loss of disc height. Degenerative signal changes in the endplates. Osteophytes projecti ng posteriorly and laterally, greater on the left. No focal disc herniation is present. Mild facet degenerative changes and ligamentous hypertrophy. Mild central canal stenosis.No neural foraminal st enosis. L5-S1: No focal disc herniation is present. Mild facet degenerative changes. No central spinal lisandro l stenosis.No neural foraminal stenosis. The visualized SI joints and sacrum are unremarkable. Soft tissues: The paraspinal soft tissues are unremarkable. Cyst lower pole left kidney. Aorta trisha l in diameter. IMPRESSION: Severe degenerative disc changes at L4-5 combining with facet degenerative changes causes mild centra l canal stenosis. No evidence of disc herniation or neural foraminal narrowing at any level. DATA REPOSITORY:
== END 2023-12-28 01:51 ==
LOC: DI 01:31
PROVIDERS: PCP Physician Assistant; Visit Provider Student in an Organized Health Care Education/Training Program
DX: M53.3 Sacrococcygeal disorders, not elsewhere classified (principal); M54.50 Low back pain, unspecified
CPT/HCPCS: 72148

== ENCOUNTER 2024-01-31 08:16 | Outpatient (CLI) | payer MEDICARE, SELFPAY ==
[2024-01-31 08:23] VITALS: BP 117/77; PULSE 89; RESP 20; TEMP 36.6; O2SAT 95
[2024-01-31 08:41] VITALS: O2SAT 92
[2024-01-31 08:50] VITALS: O2SAT 93
--- NOTE | 2024-01-31 08:55 | PDOC.PAIN_ITS ---
Date of service: 01/31/24 Time of Service: 09:03 Pain Managment Procedure Note Procedure Note Procedure Note: Diagnostic Lumbar Facet Joint Injection ? Location: Right Lumbar Facet Joints ? Levels: L4-5 and L5-S1 ? Pre-procedure Diagnosis: M47.817 Spondylosis without myelopathy or radiculopathy, lumbosacral region M47.816 Spondylosis without myelopathy or radiculopathy, lumbar region ? Post-procedure Diagnosis:? The same as above ? Sedation:? None ? Estimated blood loss:? less than 2 cc ? Surgeon: Nelson Ramirez MD COMMENT: Pain 11/16 .Decision was made to proceed with intra-articular facet injections for the possibility of not having to do medial branch blocks and radiofrequency ablation if patient get long lasting relief (> 3 months). ? Procedure Detail:? The procedure and potential risks were explained to the patient and informed written consent was obtained. The patient was escorted to the procedure room and placed in the prone position. Pillows were utilized for proper positioning and comfort.? Time out was performed in the procedure room with nursing staff confirming the patient's identity, procedure to be performed, allergies, and any blood thinning or anti-platelet medications.? Sterile technique was maintained throughout the procedure.? The patient's lumbosacral area was prepped with chlorhexidine and draped in a sterile fashion. Lidocaine 1% was used to anesthetize the skin. An oblique fluoroscopic view was obtained, with visualization of the facet joint.? A 22gauge, Quincke needle was gently advanced through the facet capsule.? Needle placement was confirmed with fluoroscopy in AP, oblique, and lateral views by injecting 0.25cc of contrast.? 20 mg of depomedrol and 0.5ml of 0.5% bupivacaine was injected into the capsule at L4-5 Right and L5-S1 Right .? The patient tolerated the procedure well and was transported to recovery area for observation and discharge instructions. Permanent images saved and recorded. Plan:? Follow up prn. COMMENT: Pain?went 11/16 to 09/16 30 % better. Will use this as both diagnostic and potentially therapeutic.? With short-term relief from the level that it was not long-lasting then we will proceed with for LMBB #2 and possible radiofreque ncy ablation
--- NOTE | 2024-01-31 08:57 | DI.RAD_ITS ---
Exam(s) XR PAIN CLINIC LUMBAR SP 2V EXAM: XR PAIN CLINIC LUMBAR SP 2V CLINICAL HISTORY: DX: Lumbar spondylosis TECHNIQUE: 2D and realtime digital imaging was performed. Radiologist not present. CONTRAST MATERIAL: None. COMPARISON: No exams were available for comparison FINDINGS: Fluoroscopy was provided for pain management therapy. Lumbar facet joint injections Please refer to procedure report or details. Radiation Exposure Index: Ka,r=23.63 mGy IMPRESSION: As above. RADIATION DOSE DELIVERED:
[2024-01-31] MEDS: Omnipaque 240 MG/ML 50 ML BTL IJ (09:04)
[2024-01-31] MEDS: Nerve Block Tray 1 EACH MC (09:04)
[2024-01-31] MEDS: methylPREDNISolone ACETATE 80 MG/ML VIAL IJ (09:05)
[2024-01-31] MEDS: Bupivacaine 0.5% Pres-Free 10 ML VIAL IJ (09:05)
== END 2024-01-31 08:17 | disposition home or self-care (01) ==
LOC: PC 08:16
PROVIDERS: PCP Physician Assistant; Visit Provider Anesthesiology Pain Medicine
DX: M54.50 Low back pain, unspecified (principal); M47.817 Spondylosis without myelopathy or radiculopathy, lumbosacral region; M47.816 Spondylosis without myelopathy or radiculopathy, lumbar region
CPT/HCPCS: 00123; 64493; 64494; 72100; J0665; J1010; Q9967

== ENCOUNTER 2024-10-04 09:11 | Outpatient (REF) | payer MEDICARE, SELFPAY ==
[2024-10-04 15:22] LABS: Hemoglobin A1C 6.3 % (<5.7)
[2024-10-04 15:38] LABS: ALT 25 U/L (16-63); AST 19 U/L (15-37); Albumin 3.5 g/dL (3.4-5.0); Alkaline Phosphatase 80 U/L (46-116); Anion Gap 6.2 mmol/L (3-11); BUN 15 mg/dL (7-18); Bilirubin, Total 1.3 mg/dL (0.2-1.0); CO2 29.8 mmol/L (21.0-32.0); Calcium 8.9 mg/dL (8.5-10.1); Calculated LDL 71 mg/dL (<100); Chloride 104 mmol/L (98-107); Cholesterol 143 mg/dL (<200); Estimated GFR 77.52 (mL/min/1.73m2); Glucose 135 mg/dL (74-106); HDL Cholesterol 56 mg/dL (>or=40); Potassium 4.4 mmol/L (3.5-5.1); Sodium 140 mmol/L (136-145); Total Protein 7.1 g/dL (6.4-8.2); Triglyceride 83 mg/dL (<150)
[2024-10-04 15:46] LABS: COMMENT (LAB VIEW ONLY) 107.88 mg/dL; Microalb ug/mg Crea 36.2 ug/mg Cr
== END 2024-10-04 09:12 | disposition home or self-care (01) ==
LOC: NCHCN 09:11
PROVIDERS: PCP Physician Assistant; Visit Provider Physician Assistant
DX: E78.5 Hyperlipidemia, unspecified (principal); E11.9 Type 2 diabetes mellitus without complications
CPT/HCPCS: 80053; 80061; 82043; 82570; 83036

== ENCOUNTER 2024-12-16 05:38 | Inpatient (IN) | payer MEDICARE, SELFPAY ==
[2024-12-16] VITALS (46 sets, daily range): BP systolic 93–134; BP diastolic 65–96; PULSE 76–94; RESP 13–29; TEMP 36.4–36.8; O2SAT 92–100
--- NOTE | 2024-12-16 05:30 | RT.EKG_ITS ---
APPROVED REPORT Exam: Resting ECG Reason for Exam: SOB Patient Location: E HR:85 bpm ECG Measurements Heart Rate 85 AXIS WI 176 P 35 QRSd 156 QRS 38 QT 441 T 208 QTc 526 Conclusion Sinus rhythm...normal P axis, V-rate 60- 99 Left bundle branch block...QRSd>120, broad/notched R Physician: New LBBB compared to prior. No evidence of sgarbossa
--- NOTE | 2024-12-16 05:49 | W.ED.GENAD ---
Discharge Plan Disposition Patient Disposition: Admit to [facility] Condition: Stable Discharge Details Clinical Impression: Acute CHF (congestive heart failure), Left bundle branch block Primary Care Provider: Jonathon Frederick ED Provider: Wisam Conway Home Meds and New Rx's Prescriptions: No Action atorvastatin 20 mg tablet 20 mg PO DAILY dorzolamide-timolol 22.3-6.8 mg/mL drops 1 drp ophthalmic (eye) BID Jardiance 10 mg tablet 10 mg PO DAILY potassium chloride 10 mEq capsule, extended release 10 meq PO DAILY multivitamin [Once Daily] 1 EACH tablet 1 tab PO DAILY aspirin [Aspirin Low-Strength] 81 MG tablet,chewable 81 mg PO DAILY pravastatin [Pravachol] 20 MG tablet 1 tab PO DAILY Qty: 90 4RF lisinopril 20 MG tablet 1 tab PO DAILY Qty: 90 4RF amlodipine [Norvasc] 5 MG tablet 1 tab PO QAM Qty: 90 4RF allopurinol 100 MG tablet 2 tab PO DAILY Qty: 180 4RF ibuprofen 200 MG tablet 200 mg PO DIRECTED PRN metoprolol succinate 50 mg tablet extended release 24 hr 50 mg PO DAILY furosemide 20 mg tablet 20 mg PO DAILY (DME) OneTouch Ultra Test Strip MISCELLANEOUS Patient Comments: USE TO TEST BLOOD SUGAR ONCE DAILY (DME) lancets [OneTouch Delica Plus Lancet] 33 gauge [facility] MISCELLANEOUS Patient Comments: USE DIRECTED ONCE DAILY TO CHECK BLOOD GLUCOSE HPI General Date/Time Provider Initiated Documentation: 12/16/24 05:41. HPI Narrative: This is a 79-year-old male with a past medical history of kidney stones, mild obesity, hypertension, high cholesterol, peripheral edema on 20 of furosemide daily, who presents today for evaluation of shortness of breath. Patient states that for the last 2 to 3 days he has been mildly short of breath, it occurs at rest, it is worsened when he lies flat, and worsened when he exerts himself. After about a minute of any exertion he develops shortness of breath. He denies any chest pain, chest tightness, arm neck or shoulder pain. He denies any syncope. He denies any cough, fever or chills. He has been taking his medications as directed. He denies any extra or recent salty foods. He does admit to a trace amount of swelling in his lower extremities. No other complaints at this time. No other modifying factors. No personal history of IA, no previous history of stroke. No recent long trips surgeries or procedures. The patient does not smoke tobacco. Related Data Home Medications ?Medication ?Instructions ?Recorded ?Confirmed multivitamin (Once Daily tablet) 1 tab PO DAILY 09/12/12 12/16/24 ibuprofen 200 mg tablet 200 mg PO DIRECTED PRN 11/16/13 12/16/24 aspirin 81 mg chewable tablet 81 mg PO DAILY 11/02/14 12/16/24 (Aspirin Low-Strength) pravastatin 20 mg tablet 1 tab PO DAILY #90 tab-caps 03/02/17 12/16/24 (Pravachol) Held on 12/16/24. Instructions: Changed by Provider allopurinol 100 mg tablet 2 tab PO DAILY #180 tabs 09/21/17 12/16/24 amlodipine 5 mg tablet (Norvasc) 1 tab PO QAM #90 tabs 09/21/17 12/16/24 lisinopril 20 mg tablet 1 tab PO DAILY #90 tabs 09/21/17 12/16/24 furosemide 20 mg tablet 20 mg PO DAILY 04/15/20 12/16/24 metoprolol succinate 50 mg 50 mg PO DAILY 04/15/20 12/16/24 tablet,extended release 24 hr atorvastatin 20 mg tablet 20 mg PO DAILY 12/01/23 12/16/24 dorzolamide 22.3 mg-timolol 6.8 1 drp ophthalmic (eye) BID 12/01/23 12/16/24 mg/mL eye drops empagliflozin 10 mg tablet 10 mg PO DAILY 12/01/23 12/16/24 (Jardiance) potassium chloride 10 mEq 10 meq PO DAILY 12/01/23 12/16/24 capsule,extended release blood sugar diagnostic (OneTouch 12/16/24 12/16/24 Ultra Test strips) lancets 33 gauge (OneTouch Delica 12/16/24 12/16/24 Plus Lancet) Previous Rx's ?Medication ?Instructions ?Recorded pravastatin 20 mg tablet 1 tab PO DAILY #90 tab-caps 03/02/17 (Pravachol) Held on 12/16/24. Instructions: Changed by Provider allopurinol 100 mg tablet 2 tab PO DAILY #180 tabs 09/21/17 amlodipine 5 mg tablet (Norvasc) 1 tab PO QAM #90 tabs 09/21/17 lisinopril 20 mg tablet 1 tab PO DAILY #90 tabs 09/21/17 Allergies Allergy/AdvReac Type Severity Reaction Status Date / Time No Known Allergies Allergy Unverified 12/16/24 05:43 General Stated Complaint: SOB FELIX: 3 Exam Narrative Exam Narrative: 1.Const: Well-nourished, Well-developed, appearing stated age 2.Eyes: PERRL, no conjunctival injection, and symmetrical lids. 3.ENT: Atraumatic external nose and ears. Moist MM. Neck: Symmetric, trachea midline, No thyromegaly. 4.CVS: +S1/S2, Peripheral pulses 2+ and equal in all extremities. Brisk capillary refill in all extremities. 5.RESP: Unlabored respiratory effort. Clear to auscultation bilaterally. No wheezes rales or rhonchi 6.GI: Soft, Nontender/Nondistended, No hepatosplenomegaly. No guarding or rebound. 7.MSK: Normocephalic/Atraumatic, Extremities w/o deformity or ttp No cyanosis or clubbing, Normal movement of all extremities, trace pitting edema of the lower extremities. 8.Skin: Warm, Dry. No rashes or lesions. 9.Neuro: marketing traffic manager II-XII grossly intact. Sensation grossly intact, no focal neurologic deficits. 10.Psych: (AAO) x3. Appropriate mood and affect Course Vital Signs Vital signs: Vital Signs Pulse 94 H 12/16/24 05:40 Respiratory Rate 20 12/16/24 05:40 Pulse Oximetry 93 12/16/24 05:40 Pulse 94 H 12/16/24 05:40 Respiratory Rate 22 12/16/24 05:43 Respiratory Effort Short of Breath 12/16/24 05:43 Respiratory Depth Deep 12/16/24 05:43 Respiratory Pattern Normal 12/16/24 05:43 Pulse Oximetry 93 12/16/24 05:40 Oxygen Delivery Method Room Air 12/16/24 05:40 Oxygen Flow Rate 0 12/16/24 05:40 Medical Decision Making This is a 79-year-old male with a past medical history of kidney stones, mild obesity, hypertension, high cholesterol, peripheral edema on 20 of furosemide daily, who presents today for evaluation of shortness of breath. Patient states that for the last 2 to 3 days he has been mildly short of breath, it occurs at rest, it is worsened when he lies flat, and worsened when he exerts himself. After about a minute of any exertion he develops shortness of breath. He denies any chest pain, chest tightness, arm neck or shoulder pain. He denies any syncope. He denies any cough, fever or chills. He has been taking his medications as directed. He denies any extra or recent salty foods. He does admit to a trace amount of swelling in his lower extremities. No other complaints at this time. No other modifying factors. No personal history of IA, no previous history of stroke. No recent long trips surgeries or procedures. The patient does not smoke tobacco. Exam demonstrates trace pitting edema of the lower extremities, clear lung sounds. O2 saturation is 93%. Differential is highest for positional nocturnal dyspnea and congestive heart failure, but also includes less likely ACS, or pneumonia. He has no tachycardia, chest pain, pleuritic chest pain recent red flag risk factors for pulmonary embolism. No fever or chills. We will give 20 of IV Lasix, evaluate for these etiologies, monitor closely and reassess. 7:43 AM Bedside limited echo shows notably dilated left ventricle, diminished ejection fraction around 30%. Additionally patient's EKG shows left bundle branch block which is negative for Sgarbossa's criteria, however it is a change from his prior EKG in 2019. Prior EKG was normal sinus. This is also concerning. I doubt it is acute, but I suspect there is certainly a chronic worsening heart disease. Chest x-ray was read as negative per radiology. Patient has not yet urinated any significant amount, and additional 20 mg of Lasix has been added. proBNP is high in the 700s, initial troponin is in the 50s. With these abnormalities, I do feel the patient would benefit from admission, formal echo, and potential stress testing and continue diuresis. Discussed the case with the hospitalist Dr. Garcia, he agrees with the assessment and plan. I have extensively reviewed the treatment plan with the patient. I have addressed all patient concerns at this time. I have also discussed the plan with the admitting physician and they agree with the current assessment and plan and have agreed to assume responsibility for the patient. All parties demonstrate verbal understanding and agreement with our assessment and plan at this time. The documentation in this chart was dictated using [employer] dictation software. Please excuse any dictation errors. FINDINGS: Lungs: Bibasilar atelectasis. Pleural spaces: No large pleural effusion seen. Heart/Mediastinum: No cardiomegaly. Bones/joints: No acute abnormality. IMPRESSION: No acute findings to explain reported symptoms. Thank you for allowing us to participate in the care of your patient. Dictated and Authenticated by: Yaritza Moore MD 12/16/2024 6:23 AM Eastern Time ([place] & [place]) PFS All Active Problems (Updated 12/16/24 @ 07:44 by Wisam Conway DO) Left bundle branch block (Acute) Acute CHF (congestive heart failure) (Acute) Lumbar spondylosis (Acute) Mechanical low back pain (Acute) Pain of right sacroiliac joint (Acute) Kidney stone (Acute 01/23/14) Impotence of organic origin (Acute) Elevated glucose (Acute 01/23/14) Medical History Kidney stone (09/12/12) Alcohol abuse Clostridium difficile diarrhea (01/31/16) Cholelithiasis without obstruction Screening for colon cancer Tubular adenoma 5 tubular adenomas 2008 1 TUBULAR ADENOMA 2012 tubular adenoma with focal high grade dysplasia, 12/11/16; DR. CORTES Rotator cuff syndrome (10/05/08) Osteoarthritis left leg Obesity Impotence Hypertension Hyperlipidemia (09/13/12) Gout Glaucoma Alcohol abuse Surgical History History of colonoscopy (~10/2021) Status post inguinal hernia repair History of extraction of renal calculus hernia repair left Kidney Stone Extraction Colonoscopy - MAC (12/11/16) Colonoscopy - MAC (12/02/11) Family History Mother Diabetes Stroke Father Myocardial infarction Sister Hypothyroidism Grandfather Myocardial infarction Grandfather Myocardial infarction Grandmother No problems noted. Grandmother No problems noted. Brother No problems noted. Social History Smoking/Tobacco Use Status: Never Smoking risk assessment performed?: Yes Alcohol Intake: current Alcohol Intake frequency: 0-2 drinks per day Alcohol type: wine Substance use type: former substance user and marijuana Household members: spouse What is your relationship status?: Panel score (0-1 are the most socially isolated patients): 1 What type of physical activity do you participate in: none Do you feel safe at home: Yes Do you feel safe in your relationship?: Yes Additional Social history: unable to assess dylan POCUS Exam (ED) Limited Cardiac Exam DATE OF EXAM: 12/16/24 TIME OF EXAM: 06:49 PROVIDER THAT PERFORMED THE STUDY: Wisam Conway REASON FOR EXAM: Dyspnea VISUALIZED STRUCTURES: Left atrium and Left ventricle VIEW OBTAINED: Parasternal long-axis PERTINENT FINDINGS/IMPRESSION: LV dysfunction :severe Exam complete
[2024-12-16 06:02] LABS: BE (Venous) -1 mmol/L (-2-3); HCO3 (Venous) 24 mmol/L (23-28); O2 Sat (Venous) 95 %; TCO2 (Venous) 21 mmol/L (24-29); pCO2 (Venous) 39 mmHg (41-51); pO2 (Venous) 68 mmHg
[2024-12-16] MEDS: Furosemide 20 MG/2 ML VIAL IVP ×2 (06:03→07:51)
[2024-12-16] MEDS: Normal Saline Flush 10 ML SYR IVP (06:03)
[2024-12-16 06:04] LABS: Abs Immature Grans 0.03 10^3/uL (0.0-0.06); HCT 44.9 % (40.0-50.0); HGB 15.3 g/dL (13.5-17.5); Immature Grans % 0.4 %; MCH 31.9 pg (27.0-33.0); MCHC 34.1 % (32.0-36.0); MCV 94 fL (80-95); MPV 9.6 fL (8.0-11.0); Platelet Count 118 10^3/uL (130-400); RBC 4.80 10^6/uL (4.36-5.78); RDW 12.7 % (11.8-14.1); RDW-SD 43.6 fL; WBC 6.95 10^3/uL (4.4-10.8)
--- NOTE | 2024-12-16 06:17 | DI.RAD_ITS ---
Exam(s) XR PORTABLE CHEST AP EXAM: XR PORTABLE CHEST AP CLINICAL HISTORY: SOB, concern for CHF TECHNIQUE: 2D digital imaging was performed of the chest. One image was obtained. An AP view was obtained. COMPARISON: CR XR RIBS LT W PA LAT CHEST from 04/15/2020 FINDINGS: MEDIASTINUM: Normal. HEART: Normal. PULMONARY VASCULATURE: There is mild pulmonary venous congestion. LUNGS: Mild interstitial infiltrates are seen in the lungs which may reflect pulmonary edema. No focal consolidating infiltrates are present. PLEURAL SPACE: No pleural effusion or pneumothorax. BONE:Within normal limits for the patient's age. OTHER FINDINGS:Normal. IMPRESSION: 1. Mild pulmonary venous congestion and mild interstitial infiltrates which may represent edema. Fluid overload should be considered. 2. No focal consolidating infiltrates are seen. 3. The preliminary [facility] report was reviewed. DATA REPOSITORY: RADIATION DOSE DELIVERED:
--- NOTE | 2024-12-16 06:23 | DI.[facility]_ITS ---
PROCEDURE INFORMATION: Exam: XR Chest Exam date and time: 12/16/2024 6:18 AM Age: 79 years old Clinical indication: Shortness of breath; SOB, concern for chf TECHNIQUE: Imaging protocol: Radiologic exam of the chest. Views: 1 view. COMPARISON: CR XR RIBS LT W PA LAT CHEST 04/15/2020 9:41 AM FINDINGS: Lungs: Bibasilar atelectasis. Pleural spaces: No large pleural effusion seen. Heart/Mediastinum: No cardiomegaly. Bones/joints: No acute abnormality. IMPRESSION: No acute findings to explain reported symptoms. Dictated and Authenticated by: Yaritza Moore MD. Orderin Zoraida Joel MD
[2024-12-16 06:59] LABS: INR 1.1 (0.9-1.1); PTT Activated 25.2 sec (20.6-30.2); Prothrombin Time 11.1 sec (9.1-11.1)
[2024-12-16 07:08] LABS: ALT 21 U/L (16-63); AST 12 U/L (15-37); Albumin 3.4 g/dL (3.4-5.0); Alkaline Phosphatase 70 U/L (46-116); Anion Gap 10.3 mmol/L (3-11); BUN 17 mg/dL (7-18); Bilirubin, Total 0.8 mg/dL (0.2-1.0); CO2 26.7 mmol/L (21.0-32.0); Calcium 8.4 mg/dL (8.5-10.1); Chloride 104 mmol/L (98-107); Estimated GFR 87.96 (mL/min/1.73m2); Glucose 163 mg/dL (74-106); NT-proBNP 765 pg/mL (<300); Potassium 3.9 mmol/L (3.5-5.1); Sodium 141 mmol/L (136-145); Total Protein 7.3 g/dL (6.4-8.2); Troponin I 59 ng/L (<or=76)
[2024-12-16 08:04] LABS: Troponin I 82 ng/L (<or=76)
[2024-12-16 08:22] LABS: Lab Add On Test DONE
[2024-12-16 08:50] LABS: Magnesium 1.9 mg/dL (1.8-2.4)
[2024-12-16 08:54] LABS: Hemoglobin A1C 6.0 % (<5.7)
[2024-12-16] MEDS: Atorvastatin 40 MG TAB PO (10:05)
[2024-12-16] MEDS: Metoprolol CR 50 MG TABCR PO (10:05)
[2024-12-16] MEDS: Aspirin 81 MG CHEW PO (10:06)
[2024-12-16] MEDS: amLODIPine 5 MG TAB PO (10:06)
[2024-12-16] MEDS: Enoxaparin 40 MG/0.4 ML SYR SC (10:06)
[2024-12-16 10:34] LABS: Troponin I 137 ng/L (<or=76)
--- NOTE | 2024-12-16 10:48 | W.PM.HP.N ---
Date of service: 12/16/24 Time of Service: 10:48 Assessment and Plan Assessment and plan (1) NSTEMI (non-ST elevated myocardial infarction): Status: Acute Assessment and plan: With new dyspnea/othopnea/GASTON and elevated troponins c/w ACS. LBBB new since 2019, but Sgarbossa negative so not c/w STEMI Case not reviewed with [facility] in ED, call pending. Was on ASA, continue. Start heparin. GASTON improved with diuresis since admisison. Spoke to Chani HANEY from [facility]. Agreed with current management. Recommending trending troponins. If peaking near current levels, likely this is type 2 ischemia, no clopidogrel or urgent transfer for cath. If troponins getting closer to 1000 would reconsider. Rec: echo wednesday, no MPI unless looking more like type 1 ischemia clinically. (2) Acute CHF (congestive heart failure): Status: Acute Assessment and plan: POCUS suggesting new HFrEF. Responding to diuresis with furosemide 20mg, continue this BID. If confirmed will need additional GDMT. Echo when available Wednesday (3) Hypertension: Assessment and plan: Continue outpatient therapy. (4) Hyperlipidemia: Assessment and plan: LDL recently 71 on 20mg atorvastatin, given ACS increase to high intensity dose (5) Type 2 diabetes mellitus: Assessment and plan: well controlled as outpatient on low dose empagliflozin. Continue. (6) Thrombocytopenia: Status: Chronic Assessment and plan: New. Labs not c/w cirrhosis. He does have high risk alcohol use. Monitor. b12 with labs. History of Present Illness History of Present Illness Chief Complaint: dyspnea Narrative: 79 yo M with history of hypertension, hyperlipidemia, well controlled type 2 DM, gout, BMI 38.6 who presented with acutely worse dyspnea about 36 hours. Started the 2 nights prior to presentation. He couldn't sleep because when he lied down he would get short of breath. He continued short of breath all day yesterday, especially when doing anything active. He had the same dyspnea trying to lie down last night and decided to come in early this morning. He never had chest pain or pressure. He hasn't been nauseous, dizzy, or diaphoretic. He hasn't had fever/chill or increase cough or URI symptoms. He has had some LE edeam for years and takes 20mg furosemide, but he hasn't notice it acutely worse or increase in his weight or waist circumference. He has had some dyspnea for years as well, had cardiac work up in 2019, but hasn't felt this acuity of symptoms before. Review of Systems All systems reviewed & are unremarkable except as noted in HPI and below PFSH All Active Problems Thrombocytopenia (Chronic) NSTEMI (non-ST elevated myocardial infarction) (Acute) Left bundle branch block (Acute) Acute CHF (congestive heart failure) (Acute) Lumbar spondylosis (Acute) Mechanical low back pain (Acute) Pain of right sacroiliac joint (Acute) Kidney stone (Acute 01/23/14) Impotence of organic origin (Acute) Elevated glucose (Acute 01/23/14) Medical History Type 2 diabetes mellitus Kidney stone (09/12/12) Alcohol abuse Clostridium difficile diarrhea (01/31/16) Cholelithiasis without obstruction Screening for colon cancer Tubular adenoma 5 tubular adenomas 2008 1 TUBULAR ADENOMA 2011 tubular adenoma with focal high grade dysplasia, 12/11/16; DR. CORTES Rotator cuff syndrome (10/05/08) Osteoarthritis left leg Obesity Impotence Hypertension Hyperlipidemia (09/13/12) Gout Glaucoma Alcohol abuse Surgical History History of colonoscopy (~10/2021) Status post inguinal hernia repair History of extraction of renal calculus hernia repair left Kidney Stone Extraction Colonoscopy - MAC (12/11/16) Colonoscopy - MAC (12/02/11) Family History Mother Diabetes Stroke Father Myocardial infarction Sister Hypothyroidism Grandfather Myocardial infarction Grandfather Myocardial infarction Grandmother No problems noted. Grandmother No problems noted. Brother No problems noted. Social History Smoking/Tobacco Use Status: Never Smoking risk assessment performed?: Yes Alcohol Intake: current Alcohol Intake frequency: 3 or more drinks per day Alcohol type: wine Counseling given: Yes Counseling provided: provider counseling Details: recommended 1 or less/day, he is pre-contemplative Substance use type: former substance user and marijuana Household members: spouse Housing: other What is your relationship status?: Panel score (0-1 are the most socially isolated patients): 1 What type of physical activity do you participate in: none Do you feel safe at home: Yes Do you feel safe in your relationship?: Yes Additional Social history: Lives with in [facility]. Daughter Terra in town. Retired from [employer] Allergies and Home Medications Allergies Allergy/AdvReac Type Severity Reaction Status Date / Time No Known Allergies Allergy Unverified 12/16/24 05:43 Home Medications ?Medication ?Instructions ?Recorded ?Confirmed ?Type multivitamin (Once Daily tablet) 1 tab PO DAILY 09/12/12 12/16/24 History ibuprofen 200 mg tablet 200 mg PO DIRECTED PRN 11/16/13 12/16/24 History aspirin 81 mg chewable tablet 81 mg PO DAILY 11/02/14 12/16/24 History (Aspirin Low-Strength) pravastatin 20 mg tablet 1 tab PO DAILY #90 tab-caps 03/02/17 12/16/24 Rx (Pravachol) Held on 12/16/24. Instructions: Changed by Provider allopurinol 100 mg tablet 2 tab PO DAILY #180 tabs 09/21/17 12/16/24 Rx amlodipine 5 mg tablet (Norvasc) 1 tab PO QAM #90 tabs 09/21/17 12/16/24 Rx lisinopril 20 mg tablet 1 tab PO DAILY #90 tabs 09/21/17 12/16/24 Rx furosemide 20 mg tablet 20 mg PO DAILY 04/15/20 12/16/24 History metoprolol succinate 50 mg 50 mg PO DAILY 04/15/20 12/16/24 History tablet,extended release 24 hr atorvastatin 20 mg tablet 20 mg PO DAILY 12/01/23 12/16/24 History dorzolamide 22.3 mg-timolol 6.8 1 drp ophthalmic (eye) BID 12/01/23 12/16/24 History mg/mL eye drops empagliflozin 10 mg tablet 10 mg PO DAILY 12/01/23 12/16/24 History (Jardiance) potassium chloride 10 mEq 10 meq PO DAILY 12/01/23 12/16/24 History capsule,extended release blood sugar diagnostic (OneTouch 12/16/24 12/16/24 History Ultra Test strips) lancets 33 gauge (OneTouch Delica 12/16/24 12/16/24 History Plus Lancet) Exam Narrative Exam Narrative: GEN: Alert and oriented x 4, pleasant and cooperative, sitting up in chair, gives linear history. No acute distress at rest. HEENT: Head atraumatic. Conjunctiva clear, no icterus. PEERL, EOMI. no rhinorrhea. MMM, OP benign. Neck is supple with no masses or lymphadenopathy, trachea midline LUNGS: Slightly course at bases but otherwise CTAB with normal effort CV: RRR with no murmurs, gallops, or rubs. Cannot appreciate elvated JVP ABD: active bowel sounds, soft, nontender and nondistended. No masses. EXT: no cyanosis, clubbing. Warm. 1-2+ pitting edema feet/ankles MSK: No joint redness or swelling NEURO: CN 2-12 grossly intact. Normal movement of 4 extremities. Normal speech and coordination. No tremor SKIN: No rashes or open wounds. PSYCH: normal mood and affect Results Imaging Chest x-ray: report reviewed (1. Mild pulmonary venous congestion and mild interstitial infiltrates which may represent edema. Fluid overload should be considered. 2. No focal consolidating infiltrates are seen.) and image reviewed EKG: report reviewed and image reviewed (NSR with LBBB. Sgarbossa negative. No change on serial EKGs) Labs 12/16/24 05:55 12/16/24 06:40 Labs: Laboratory Results - last 24 hr 12/16/24 12/16/24 12/16/24 05:35 05:55 06:40 WBC 6.95 RBC 4.80 Hgb 15.3 Hct 44.9 MCV 94 MCH 31.9 MCHC 34.1 RDW 12.7 Plt Count 118 L MPV 9.6 Immature Gran % 0.4 Neutrophils % 62.5 Lymphocytes % 23.6 Monocytes % 9.6 Eosinophils % 3.5 Basophils % 0.4 Nucleated RBC % 0.0 Absolute Neutrophils 4.34 Absolute Lymphocytes 1.64 Absolute Monocytes 0.67 Absolute Eosinophils 0.24 Absolute Basophils 0.03 PT Cancelled 11.1 INR Cancelled 1.1 APTT Cancelled 25.2 VBG pH 7.40 VBG pCO2 39 L VBG pO2 68 VBG HCO3 24 VBG Total CO2 21 L VBG O2 Saturation 95 VBG Base Excess -1 Sodium Cancelled 141 Potassium Cancelled 3.9 Chloride Cancelled 104 Carbon Dioxide Cancelled 26.7 Anion Gap Cancelled 10.3 BUN Cancelled 17 Creatinine Cancelled 0.9 Est GFR (CKD-EPI 2020) Cancelled 87.96 Glucose Cancelled 163 H Hemoglobin A1c 6.0 H Calcium Cancelled 8.4 L Magnesium Total Bilirubin Cancelled 0.8 AST Cancelled 12 L ALT Cancelled 21 Alkaline Phosphatase Cancelled 70 Troponin I Cancelled 59 NT-Pro-B Natriuret Pep Cancelled 765 H Total Protein Cancelled 7.3 Albumin Cancelled 3.4 Add-On Test Request 12/16/24 12/16/24 12/16/24 07:30 07:35 09:55 WBC RBC Hgb Hct MCV MCH MCHC RDW Plt Count MPV Immature Gran % Neutrophils % Lymphocytes % Monocytes % Eosinophils % Basophils % Nucleated RBC % Absolute Neutrophils Absolute Lymphocytes Absolute Monocytes Absolute Eosinophils Absolute Basophils PT INR APTT VBG pH VBG pCO2 VBG pO2 VBG HCO3 VBG Total CO2 VBG O2 Saturation VBG Base Excess Sodium Potassium Chloride Carbon Dioxide Anion Gap BUN Creatinine Est GFR (CKD-EPI 2020) Glucose Hemoglobin A1c Calcium Magnesium 1.9 Total Bilirubin AST ALT Alkaline Phosphatase Troponin I 82 H* 137 H* NT-Pro-B Natriuret Pep Total Protein Albumin Add-On Test Request 12/16/24 Unknown WBC RBC Hgb Hct MCV MCH MCHC RDW Plt Count MPV Immature Gran % Neutrophils % Lymphocytes % Monocytes % Eosinophils % Basophils % Nucleated RBC % Absolute Neutrophils Absolute Lymphocytes Absolute Monocytes Absolute Eosinophils Absolute Basophils PT INR APTT VBG pH VBG pCO2 VBG pO2 VBG HCO3 VBG Total CO2 VBG O2 Saturation VBG Base Excess Sodium Potassium Chloride Carbon Dioxide Anion Gap BUN Creatinine Est GFR (CKD-EPI 2020) Glucose Hemoglobin A1c Calcium Magnesium Total Bilirubin AST ALT Alkaline Phosphatase Troponin I NT-Pro-B Natriuret Pep Total Protein Albumin Add-On Test Request DONE Last Vital Signs Temp 36.8 C 12/16/24 06:09 Pulse 82 12/16/24 09:30 Resp 13 12/16/24 09:20 BP 115/87 12/16/24 09:01 Pulse Ox 94 12/16/24 09:30 Time Spent Time spent with Patient: 55-74 minutes Time was spent: preparing to see the patient(eg.review tests), obtaining and/or reviewing separately otained hiistory, ordering medications,tests, procedures, referring, communicating with other health healthcare recruiter, indepentently interpreting results, counseling the patient and care coordination
--- NOTE | 2024-12-16 12:00 | RT.EKG_ITS ---
APPROVED REPORT Exam: Resting ECG Reason for Exam: STEMI Patient Location: I HR:84 bpm ECG Measurements Heart Rate 84 AXIS NE 166 P 34 QRSd 159 QRS 40 QT 431 T 214 QTc 510 Conclusion Sinus rhythm...normal P axis, V-rate 50- 99 Left bundle branch block...QRSd>120, broad/notched R
[2024-12-16] MEDS: Potassium Chloride 10 MEQ CAPCR PO (13:04)
[2024-12-16] MEDS: Allopurinol 100 MG TAB 200 MG PO (13:05)
[2024-12-16] MEDS: Lisinopril 20 MG TAB PO (13:05)
[2024-12-16] MEDS: Multivitamin TAB 1 TAB PO (13:05)
[2024-12-16] MEDS: Empaglifozin 10 MG TAB PO (13:06)
[2024-12-16] MEDS: Heparin in 0.45% NaCl 25,000 UNIT/250 ML BAG 10 UNIT IVINF (13:19)
[2024-12-16 14:23] LABS: Troponin I 169 ng/L (<or=76)
--- NOTE | 2024-12-16 14:47 | W.PC.ACHO ---
Registration Status: ADM IN Primary Language: Preferred Language: Italian ED Information & Data Chief Complaint SOB 12/16/24 05:53 Triage Note SOB ongoing few days. Worse 12/16/24 05:40 with movement. Not able to sleep. was put on water pill a few years ago. No CP. Medical / Surgical History (Last Reviewed 12/16/24 @ 13:20 by Cristian Pulido) Alcohol abuse Alcohol abuse Cholelithiasis without obstruction Clostridium difficile diarrhea (01/31/16) Glaucoma Gout Hyperlipidemia (09/13/12) Hypertension Impotence Kidney stone (09/12/12) Obesity Osteoarthritis Rotator cuff syndrome (10/05/08) Screening for colon cancer Tubular adenoma Type 2 diabetes mellitus (Last Reviewed 12/16/24 @ 13:20 by Cristian Pulido) Colonoscopy - MAC (12/02/11) Colonoscopy - MAC (12/11/16) hernia repair History of colonoscopy (~10/2021) History of extraction of renal calculus Kidney Stone Extraction Status post inguinal hernia repair Most Recent Vital Signs Temperature 36.4 C L 12/16/24 11:42 Temperature Source Oral 12/16/24 06:09 Pulse 88 12/16/24 11:42 Pulse Rhythm Regular 12/16/24 11:42 Pulse 88 12/16/24 10:20 Respiratory Rate 22 12/16/24 11:42 Respiratory Effort Short of Breath 12/16/24 11:42 Respiratory Depth Normal 12/16/24 11:42 Respiratory Pattern Normal 12/16/24 11:42 Blood Pressure 116/74 12/16/24 11:42 Blood Pressure Mean 84 12/16/24 10:00 Pulse Oximetry 100 12/16/24 11:42 Oxygen Delivery Method Room Air 12/16/24 11:42 Oxygen Flow Rate 0 12/16/24 11:42 Pain Level 0 12/16/24 11:42 Allergies No Known Allergies Allergy (Unverified 12/16/24 05:43) Precautions Isolation Standard precaution 12/16/24 05:42 Active Medications Generic Name Dose Route Start Last Admin Trade Name Freq PRN Reason Stop Dose Admin Allopurinol 200 mg 12/16/24 13:00 12/16/24 13:05 Allopurinol 100 Mg Tab PO 200 mg DAILY CALVIN Administration Amlodipine Besylate 5 mg 12/16/24 08:30 12/16/24 10:06 Amlodipine 5 Mg Tab PO 5 mg QAM CALVIN Administration Aspirin 81 mg 12/16/24 08:30 12/16/24 10:06 Aspirin 81 Mg Chew PO 81 mg DAILY CALVIN Administration Atorvastatin Calcium 40 mg 12/16/24 08:30 12/16/24 10:05 Atorvastatin 40 Mg Tab PO 40 mg DAILY CALVIN Administration Empagliflozin 10 mg 12/16/24 13:00 12/16/24 13:06 Empaglifozin 10 Mg Tab PO 10 mg DAILY CALVIN Administration Heparin Sodium/Sodium Chloride 25,000 unit in 250 mls @ 0 mls/hr 12/16/24 10:45 12/16/24 13:19 IVINF 10 ml/hr INFUSION CALVIN 10 mls/hr Protocol Administration Per Protocol Lisinopril 20 mg 12/16/24 13:00 12/16/24 13:05 Lisinopril 20 Mg Tab PO 20 mg DAILY CALVIN Administration Metoprolol Succinate 50 mg 12/16/24 08:30 12/16/24 10:05 Metoprolol Cr 50 Mg Tabcr PO 50 mg DAILY CALVIN Administration Multivitamins 1 tab 12/16/24 13:00 12/16/24 13:05 Multivitamin Tab PO 1 tab DAILY CALVIN Administration Potassium Chloride 10 meq 12/16/24 13:00 12/16/24 13:04 Potassium Chloride 10 Meq Capcr PO 10 meq DAILY CALVIN Administration Sodium Chloride 0 ml 12/16/24 05:48 12/16/24 06:03 Normal Saline Flush 10 Ml Syr IVP 10 ml PRN PRN Administration Sodium Chloride 0 ml 12/16/24 08:30 12/16/24 12:38 Normal Saline Flush 10 Ml Syr IVP Not Given BID [facility] IV IV Catheter Type [Left Wrist] Peripheral IV IV Catheter Gauge [Left Wrist] 18 Diet Orders Category Date Time Status Diabetes Consistent CHO/Heart Healthy [DIET] Nutrition 12/16/24 Lunch Active Diagnostics 12/16/24 12/16/24 12/16/24 Range/Units Unknown 19:20 13:50 WBC (4.4-10.8) 10^3/uL RBC (4.36-5.78) 10^6/uL Hgb (13.5-17.5) g/dL Hct (40.0-50.0) % MCV (80-95) fL MCH (27.0-33.0) pg MCHC (32.0-36.0) % RDW (11.8-14.1) % Plt Count (130-400) 10^3/uL MPV (8.0-11.0) fL Immature Gran % % Neutrophils % % Lymphocytes % % Monocytes % % Eosinophils % % Basophils % % Nucleated RBC % (0.0-0.3) % Absolute Neutrophils (1.2-6.7) 10^3/uL Absolute Lymphocytes (1.2-3.4) 10^3/uL Absolute Monocytes (0.1-0.8) 10^3/uL Absolute Eosinophils (0.0-0.7) 10^3/uL Absolute Basophils (0.0-0.2) 10^3/uL PT INR APTT Pending VBG pH (7.31-7.41) VBG pCO2 (41-51) mmHg VBG pO2 mmHg VBG HCO3 (23-28) mmol/L VBG Total CO2 (24-29) mmol/L VBG O2 Saturation % VBG Base Excess (-2-3) mmol/L Sodium Potassium Chloride Carbon Dioxide Anion Gap BUN Creatinine Est GFR (CKD-EPI 2020) Glucose Hemoglobin A1c (<5.7) % Calcium Magnesium (1.8-2.4) mg/dL Total Bilirubin AST ALT Alkaline Phosphatase Troponin I 169 H* NT-Pro-B Natriuret Pep Total Protein Albumin Add-On Test Request DONE 12/16/24 12/16/24 12/16/24 Range/Units 09:55 07:35 07:30 WBC (4.4-10.8) 10^3/uL RBC (4.36-5.78) 10^6/uL Hgb (13.5-17.5) g/dL Hct (40.0-50.0) % MCV (80-95) fL MCH (27.0-33.0) pg MCHC (32.0-36.0) % RDW (11.8-14.1) % Plt Count (130-400) 10^3/uL MPV (8.0-11.0) fL Immature Gran % % Neutrophils % % Lymphocytes % % Monocytes % % Eosinophils % % Basophils % % Nucleated RBC % (0.0-0.3) % Absolute Neutrophils (1.2-6.7) 10^3/uL Absolute Lymphocytes (1.2-3.4) 10^3/uL Absolute Monocytes (0.1-0.8) 10^3/uL Absolute Eosinophils (0.0-0.7) 10^3/uL Absolute Basophils (0.0-0.2) 10^3/uL PT INR APTT VBG pH (7.31-7.41) VBG pCO2 (41-51) mmHg VBG pO2 mmHg VBG HCO3 (23-28) mmol/L VBG Total CO2 (24-29) mmol/L VBG O2 Saturation % VBG Base Excess (-2-3) mmol/L Sodium Potassium Chloride Carbon Dioxide Anion Gap BUN Creatinine Est GFR (CKD-EPI 2020) Glucose Hemoglobin A1c (<5.7) % Calcium Magnesium 1.9 (1.8-2.4) mg/dL Total Bilirubin AST ALT Alkaline Phosphatase Troponin I 137 H* 82 H* NT-Pro-B Natriuret Pep Total Protein Albumin Add-On Test Request 12/16/24 12/16/24 12/16/24 Range/Units 06:40 05:55 05:35 WBC 6.95 (4.4-10.8) 10^3/uL RBC 4.80 (4.36-5.78) 10^6/uL Hgb 15.3 (13.5-17.5) g/dL Hct 44.9 (40.0-50.0) % MCV 94 (80-95) fL MCH 31.9 (27.0-33.0) pg MCHC 34.1 (32.0-36.0) % RDW 12.7 (11.8-14.1) % Plt Count 118 L (130-400) 10^3/uL MPV 9.6 (8.0-11.0) fL Immature Gran % 0.4 % Neutrophils % 62.5 % Lymphocytes % 23.6 % Monocytes % 9.6 % Eosinophils % 3.5 % Basophils % 0.4 % Nucleated RBC % 0.0 (0.0-0.3) % Absolute Neutrophils 4.34 (1.2-6.7) 10^3/uL Absolute Lymphocytes 1.64 (1.2-3.4) 10^3/uL Absolute Monocytes 0.67 (0.1-0.8) 10^3/uL Absolute Eosinophils 0.24 (0.0-0.7) 10^3/uL Absolute Basophils 0.03 (0.0-0.2) 10^3/uL PT 11.1 Cancelled INR 1.1 Cancelled APTT 25.2 Cancelled VBG pH 7.40 (7.31-7.41) VBG pCO2 39 L (41-51) mmHg VBG pO2 68 mmHg VBG HCO3 24 (23-28) mmol/L VBG Total CO2 21 L (24-29) mmol/L VBG O2 Saturation 95 % VBG Base Excess -1 (-2-3) mmol/L Sodium 141 Cancelled Potassium 3.9 Cancelled Chloride 104 Cancelled Carbon Dioxide 26.7 Cancelled Anion Gap 10.3 Cancelled BUN 17 Cancelled Creatinine 0.9 Cancelled Est GFR (CKD-EPI 2020) 87.96 Cancelled Glucose 163 H Cancelled Hemoglobin A1c 6.0 H (<5.7) % Calcium 8.4 L Cancelled Magnesium (1.8-2.4) mg/dL Total Bilirubin 0.8 Cancelled AST 12 L Cancelled ALT 21 Cancelled Alkaline Phosphatase 70 Cancelled Troponin I 59 Cancelled NT-Pro-B Natriuret Pep 765 H Cancelled Total Protein 7.3 Cancelled Albumin 3.4 Cancelled Add-On Test Request Intake and Output - 24 Hour Total 12/16/24 05:38 thru 12/16/24 11:42 Output Total 600 Balance -600 Weight 108.6 kg Output: Urine 600 Other: Urine Appearance Clear Falls Risk Assessment History of Falls Previous History 12/16/24 11:42 Contributing Factors Incontinence 12/16/24 11:42 Ambulatory Aids Independent 12/16/24 11:42 Tubes/Lines W/no contributing factors 12/16/24 11:42 Gait Evaluation No gait disturbance 12/16/24 11:42 Cognition No cognitive impairment 12/16/24 11:42 Fall Total Score 28 12/16/24 11:42 Level of Risk Moderate Risk 12/16/24 11:42 Problems (Last Reviewed 12/16/24 @ 13:20 by Cristian Pulido) Acute CHF (congestive heart failure) (Acute) NSTEMI (non-ST elevated myocardial infarction) (Acute) Thrombocytopenia (Chronic) v v v v v v v v v Sending and/or Receiving Nurses: Please use comment section below to note any information pertinent to the patient hand-off not included above. Information / Comments: Paged [phone], called [phone]. Heparin bolus started on med-surg floor. Report received from: CHRISTOPHER Robin RN
[2024-12-16] MEDS: Furosemide 40 MG/4 ML VIAL IVP (15:46)
--- NOTE | 2024-12-16 15:56 | PDOC.CMIN ---
Date of service: 12/16/24 Time of Service: 15:56 Care Management Initial Assmt Initial Assessment Reason for Hospitalization: Acute CHF Functional Status/Living Situation Patient Presentation: Harvey was sitting in a recliner when CM met with him, he is accompanied by his Lorena. Both are pleasant and easy to engage in conversation. Harvey is admitted for acute CHF, and being closely monitored with medication management. He is planning to have an Echo tomorrow. Patient resides in [place], he is retired from the [employer] and continues to be active and independent at baseline. Per , [facility] his hearing aids, but he gets his medical care through Jonathon Frederick ([facility] CM will follow. Town of Residence: [place] Resides with: Spouse (Lorena) Significant Other/Family: [facility] Employment Status: Retired Instrumental Activities of Daily Living (ADLs): Independent Medications Medication Management: No Issues/Barriers identified Advance Directives Advance Directives: Do you have an Advance Directive: Y 12/10/20, 08:49 AD On File at [facility]: N 12/10/20, 08:49 Date Asked 12/16/24 12/16/24, 05:41 AD Date Reviewed COLST On File at [facility] COLST Date Scanned Code Status Resuscitation Status Full Code Insurance Coverage/Financial Issues Insurance: BC/BS [facility] - [id number] Care Team Visit Care Team Role Provider Type Jonathon Frederick Primary Care Provider NON-[facility] STAFF PHYSICIAN Wisam Conway, Emergency Provider [facility] STAFF PHYSICIAN Cristian Pulido Admit Provider [facility] STAFF PHYSICIAN Attending Provider Discharge Potential Discharge Needs: Consult Consult Services Needed: Cardiology and PCP F/U Appt Anticipated Barriers to Discharge: None Identified Patient/Family Education Needs: Review discharge instructions, discuss Ask Me Three Transportation: Private vehicle Plan: Echo pending for Wednesday. Anticipate, Harvey will discharge home via private vehicle when medically cleared for discharge. Jonathon will follow up with community providers and continue per discharge plan of care. No new services are anticipated at this time. CM will follow. Social Determinants of Health Screening Social Determinants of health last assessed in clinic: 12/17/24 Will the Patient Participate in the Screening?: Yes Do you worry about having a steady place to live?: no Problems where you live: no known problems In the past 12 months, have you had to go without electric, gas, oil or water in your home?: no 1. Within the past 12 months, we worried whether our food would run out before we got money to buy more.: Never true 2. Within the past 12 months, the food we bought just didn't last and we didn't have money to get more.: Never true Has lack of transportation kept you from medical appointments or from doing things needed for daily living?: no Has anyone in your life made you feel unsafe or unsupported?: no How hard is it for you to pay for the very basics like food, housing, medical care, and heating? Would you say it is:: Not hard at all Do you want help finding or keeping work or a job?: I do not need or want help If for any reason you need help with day-to-day activities such as bathing, preparing meals, shopping, managing finances, etc., do you get the help you need?: I don?t need any help How often do you feel lonely or isolated from those around you?: Never Do you speak a language other than Portuguese at home?: No Does the patient want assistance with any of the above?: No PFSH All Active Problems Thrombocytopenia (Chronic) NSTEMI (non-ST elevated myocardial infarction) (Acute) Left bundle branch block (Acute) Acute CHF (congestive heart failure) (Acute) Lumbar spondylosis (Acute) Mechanical low back pain (Acute) Pain of right sacroiliac joint (Acute) Kidney stone (Acute 01/23/14) Impotence of organic origin (Acute) Elevated glucose (Acute 01/23/14) Medical History Type 2 diabetes mellitus Kidney stone (09/12/12) Alcohol abuse Clostridium difficile diarrhea (01/31/16) Cholelithiasis without obstruction Screening for colon cancer Tubular adenoma 5 tubular adenomas 2008 1 TUBULAR ADENOMA 2012 tubular adenoma with focal high grade dysplasia, 12/11/16; DR. CORTES Rotator cuff syndrome (10/05/08) Osteoarthritis left leg Obesity Impotence Hypertension Hyperlipidemia (09/13/12) Gout Glaucoma Alcohol abuse Surgical History History of colonoscopy (~10/2021) Status post inguinal hernia repair History of extraction of renal calculus hernia repair left Kidney Stone Extraction Colonoscopy - MAC (12/11/16) Colonoscopy - MAC (12/02/11) Family History Mother Diabetes Stroke Father Myocardial infarction Sister Hypothyroidism Grandfather Myocardial infarction Grandfather Myocardial infarction Grandmother No problems noted. Grandmother No problems noted. Brother No problems noted. Social History Smoking/Tobacco Use Status: Never Smoking risk assessment performed?: Yes Alcohol Intake: current Alcohol Intake frequency: 3 or more drinks per day Alcohol type: wine Counseling given: Yes Counseling provided: provider counseling Details: recommended 1 or less/day, he is pre-contemplative Substance use type: former substance user and marijuana Household members: spouse Housing: other What is your relationship status?: Panel score (0-1 are the most socially isolated patients): 1 What type of physical activity do you participate in: none Do you feel safe at home: Yes Do you feel safe in your relationship?: Yes Additional Social history: Lives with in [facility]. Daughter Terra in town. Retired from [employer]
[2024-12-16 18:25] LABS: Troponin I 150 ng/L (<or=76)
[2024-12-16 20:12] LABS: PTT Activated 42.0 sec (20.6-30.2)
[2024-12-17 03:23] LABS: HCT 45.0 % (40.0-50.0); HGB 15.5 g/dL (13.5-17.5); MCH 32.3 pg (27.0-33.0); MCHC 34.4 % (32.0-36.0); MCV 94 fL (80-95); MPV 9.4 fL (8.0-11.0); Platelet Count 119 10^3/uL (130-400); RBC 4.80 10^6/uL (4.36-5.78); RDW 12.7 % (11.8-14.1); RDW-SD 44.0 fL; WBC 7.02 10^3/uL (4.4-10.8)
[2024-12-17 03:35] LABS: Troponin I 71 ng/L (<or=76); Uric Acid 5.5 mg/dL (3.5-7.2)
[2024-12-17 03:38] VITALS: BP 104/65; PULSE 79; RESP 24; TEMP 36.5; O2SAT 92
[2024-12-17 03:43] LABS: PTT Activated 57.1 sec (20.6-30.2)
[2024-12-17] MEDS: Heparin in 0.45% NaCl 25,000 UNIT/250 ML BAG 12 UNIT IVINF (04:39)
[2024-12-17 05:07] LABS: Vitamin B12 301 pg/mL (193-986)
[2024-12-17 07:16] VITALS: BP 95/77; PULSE 82; RESP 18; TEMP 36.8; O2SAT 96
[2024-12-17] MEDS: Normal Saline Flush 10 ML SYR IVP ×2 (08:30→19:44)
--- NOTE | 2024-12-17 09:16 | W.PM.PROGNOT ---
Date of Service Date of service: 12/17/24 Time of Service: 09:17 Assessment and Plan Assessment and plan (1) NSTEMI (non-ST elevated myocardial infarction): Status: Acute Assessment and plan: With new dyspnea/othopnea/GASTON and elevated troponins c/w ACS. LBBB new since 2019, but Sgarbossa negative so not c/w STEMI, no change on repeat. Was on ASA, continue. Started heparin when troponins increased, plan 48hrs GASTON improved with diuresis since admisison. We need better urine outpt and a standing weight today. Troponins now normalized 8 am. Spoke to Chani HANEY from [facility] Cardiology 12/16. Agreed with current management. With troponins peaking <200, likely this is type 2 ischemia, no clopidogrel or urgent transfer for cath. Rec: echo wednesday, no MPI as does not look like type 1 ischemia. If focal findings on Echo, however, will reconsult re: cath. (2) Acute CHF (congestive heart failure): Status: Acute Assessment and plan: POCUS suggesting new HFrEF. Responding to diuresis with furosemide 20mg, continue this BID. If confirmed will need additional GDMT. He is on SGLT2i, lisinopril, and metoprolol already. Glaucoma drops okay with topical beta block. Echo when available Wednesday (3) Hypertension: Assessment and plan: Continue outpatient therapy, but will stop amolodipine as we transition to spironolactone (4) Hyperlipidemia: Assessment and plan: LDL recently 71 on 20mg atorvastatin, given ACS increased statin to high intensity dose (5) Type 2 diabetes mellitus: Assessment and plan: well controlled as outpatient on low dose empagliflozin. Continue. (6) Thrombocytopenia: Status: Chronic Assessment and plan: New. Labs not c/w cirrhosis. He does have high risk alcohol use. Stable. b12 low normal, supplement vs get MMA but not urgent. Subjective Subjective Patient reports: no new complaints, tolerating a regular diet and voiding w/o difficulty; denies nausea, vomiting or fever Interval history since last seen: He feels okay. Made good amount of urine yesterday (not well documented). He still feels SOB when he tries to lie flat. No chest pain/pressure. No bleeding Exam Narrative Exam Narrative: GEN: Alert and oriented, sitting up in chair. No acute distress at rest. LUNGS: CTAB with normal effort CV: RRR with no murmurs, gallops, or rubs. Cannot appreciate elvated JVP ABD: active bowel sounds, soft, nontender and nondistended. No masses. EXT: no cyanosis, clubbing. Warm. 1+ pitting edema feet/ankles Objective Last Vital Signs Temp 36.8 C 12/17/24 07:16 Pulse 82 12/17/24 07:16 Resp 18 12/17/24 07:16 BP 95/77 L 12/17/24 07:16 Pulse Ox 96 12/17/24 07:16 Laboratory Results - last 24 hr 12/16/24 12/16/24 12/16/24 09:55 13:50 17:45 WBC RBC Hgb Hct MCV MCH MCHC RDW Plt Count MPV APTT Uric Acid Troponin I 137 H* 169 H* 150 H* Vitamin B12 12/16/24 12/17/24 19:43 03:12 WBC 7.02 RBC 4.80 Hgb 15.5 Hct 45.0 MCV 94 MCH 32.3 MCHC 34.4 RDW 12.7 Plt Count 119 L MPV 9.4 APTT 42.0 H 57.1 H Uric Acid 5.5 Troponin I 71 Vitamin B12 301 PAWSS Have you Been Recently Intoxicated or Drunk Within the Last 30 days?: No Have you Ever Experienced Previous Episodes of Alcohol Withdrawal?: No Have you ever Experienced Withdrawal Seizures?: No Have you ever Experienced Delirium Tremens(DT)s?: No Have you ever undergone Alcohol Rehabilitation Treatment (i.e, inpt ot outpatient treatment programs)?: No Have you ever Experienced Blackouts?: No Have you ever Combined Alcohol with other Downers within the last 90 days?: No Have you ever Combined Alcohol with any other Substance of Abuse during the last 90 days?: No Positive Blood Alcohol level on Presentation? [PCS.BAL]: No Evidence of Increased Autonomic Activity (i.e. HR>120, tremor, sweating, agitation, nausea)?: No Result: 0 Time Spent with Patient Time Spent with Patient: 35-49 minutes Time was spent: preparing to see the patient(eg.review tests), obtaining and/or reviewing separately otained hiistory, ordering medications,tests, procedures, referring, communicating with other health medicare insurance specialist, indepentently interpreting results, counseling the patient and care coordination
[2024-12-17] MEDS: Furosemide 40 MG/4 ML VIAL IVP ×2 (10:13→15:37)
[2024-12-17] MEDS: Metoprolol CR 50 MG TABCR PO (10:14)
[2024-12-17] MEDS: Lisinopril 20 MG TAB PO (10:14)
[2024-12-17] MEDS: Atorvastatin 40 MG TAB PO (10:14)
[2024-12-17] MEDS: Multivitamin TAB 1 TAB PO (10:14)
[2024-12-17] MEDS: Allopurinol 100 MG TAB 200 MG PO (10:14)
[2024-12-17] MEDS: Aspirin 81 MG CHEW PO (10:15)
[2024-12-17] MEDS: Empaglifozin 10 MG TAB PO (10:16)
[2024-12-17 10:54] LABS: Anion Gap 9.5 mmol/L (3-11); BUN 25 mg/dL (7-18); CO2 27.5 mmol/L (21.0-32.0); Calcium 8.8 mg/dL (8.5-10.1); Chloride 103 mmol/L (98-107); Estimated GFR 77.52 (mL/min/1.73m2); Glucose 181 mg/dL (74-106); Magnesium 2.0 mg/dL (1.8-2.4); Potassium 3.6 mmol/L (3.5-5.1); Sodium 140 mmol/L (136-145)
[2024-12-17 10:56] LABS: PTT Activated 44.6 sec (20.6-30.2)
[2024-12-17 11:22] VITALS: BP 99/67; PULSE 89; RESP 18; TEMP 36.6; O2SAT 93
[2024-12-17 15:14] VITALS: BP 92/61; PULSE 80; RESP 16; TEMP 37.1; O2SAT 96
[2024-12-17 19:33] LABS: PTT Activated 57.7 sec (20.6-30.2)
[2024-12-17 19:35] VITALS: BP 123/65; PULSE 87; RESP 16; TEMP 36.4; O2SAT 93
[2024-12-17] MEDS: Heparin in 0.45% NaCl 25,000 UNIT/250 ML BAG 14 UNIT IVINF (22:01)
[2024-12-18 02:57] LABS: PTT Activated 67.8 sec (20.6-30.2)
[2024-12-18 04:44] VITALS: BP 112/65; PULSE 84; RESP 15; TEMP 36.5; O2SAT 94
[2024-12-18 06:50] LABS: Anion Gap 8.3 mmol/L (3-11); BUN 26 mg/dL (7-18); CO2 27.7 mmol/L (21.0-32.0); Calcium 8.7 mg/dL (8.5-10.1); Chloride 103 mmol/L (98-107); Estimated GFR 87.96 (mL/min/1.73m2); Glucose 154 mg/dL (74-106); Magnesium 2.1 mg/dL (1.8-2.4); Potassium 3.6 mmol/L (3.5-5.1); Sodium 139 mmol/L (136-145)
[2024-12-18 07:17] VITALS: BP 100/65; PULSE 83; RESP 16; TEMP 36.8; O2SAT 95
[2024-12-18] MEDS: Metoprolol CR 50 MG TABCR PO (09:19)
[2024-12-18] MEDS: Aspirin 81 MG CHEW PO (09:19)
[2024-12-18] MEDS: Allopurinol 100 MG TAB 200 MG PO (09:20)
[2024-12-18] MEDS: Empaglifozin 10 MG TAB PO (09:20)
[2024-12-18] MEDS: Multivitamin TAB 1 TAB PO (09:20)
[2024-12-18] MEDS: Lisinopril 20 MG TAB PO (09:21)
[2024-12-18] MEDS: Atorvastatin 40 MG TAB PO (09:21)
[2024-12-18] MEDS: Normal Saline Flush 10 ML SYR IVP (09:21)
[2024-12-18] MEDS: Spironolactone 25 MG TAB PO (09:23)
[2024-12-18] MEDS: Furosemide 40 MG/4 ML VIAL IVP (09:23)
[2024-12-18 11:13] VITALS: BP 117/73; PULSE 89; RESP 17; TEMP 37.1; O2SAT 94
--- NOTE | 2024-12-18 13:42 | W.PM.DS.N ---
Date of service: 12/18/24 Time of Service: 13:00 DS: Diagnosis Discharge Diagnosis (1) NSTEMI (non-ST elevated myocardial infarction): Status: Acute Asessment and Plan: With new dyspnea/othopnea/GASTON and elevated troponins c/w ACS. LBBB new since 2019, but Sgarbossa negative so not c/w STEMI, no change on repeat. Was on ASA, continue. Started heparin when troponins increased, plan 48hrs GASTON improved with diuresis since admisison. We need better urine outpt and a standing weight today. Troponins now normalized 8/10 am. Spoke to Chani HANEY from [facility] Card[facility] 12/16. Agreed with current management. With troponins peaking <200, likely this is type 2 ischemia, no clopidogrel or urgent transfer for cath. Echo: LVEF 35-40%. Unlikely LV thrombus. Multivessel disease. Patient will follow up with cardiology outpatient. (2) Acute CHF (congestive heart failure): Status: Acute Asessment and Plan: POCUS suggesting new HFrEF. Responding to diuresis with furosemide 20mg, continue this BID. If confirmed will need additional GDMT. He is on SGLT2i, lisinopril, and metoprolol already. Glaucoma drops okay with topical beta block. Echo as above, EF 35-40%, HFrEF (3) Hypertension: Status: Inactive Asessment and Plan: Continue outpatient therapy, but will stop amolodipine as we transition to spironolactone (4) Hyperlipidemia: Status: Inactive (5) Type 2 diabetes mellitus: Asessment and Plan: well controlled as outpatient on low dose empagliflozin. Continue. (6) Thrombocytopenia: Status: Chronic Asessment and Plan: New. Labs not c/w cirrhosis. He does have high risk alcohol use. Stable. b12 low normal, supplement vs get MMA but not urgent. Discharge Plan Disposition Patient Disposition: Home Condition: Improving Discharge Details Reason For Visit: HFrEF Admit Date/Time: 12/16/24 07:51 Admit Provider: Cristian Pulido Attending Provider: Cristian Pulido Primary Care Provider: Jonathon Frederick Hospital Course Hospital Course: Harvey Camilo is a 79 year old man presenting December 16 with shortness of breath, found to have new onset heart failure with presumed reduced ejection fraction. He has improved with the addition of spironolactone to his existing regimen (ACEI, beta twila, CCB, loop diuretic, SGLT2). He has outpatient followup arranged with his PCP and can be discharged with echocardiogram results pending. Home Meds and New Rx's Prescriptions: New spironolactone 25 mg Tablet 25 mg PO DAILY Qty: 30 3RF Continued atorvastatin 20 mg tablet 20 mg PO DAILY dorzolamide-timolol 22.3-6.8 mg/mL drops 1 drp ophthalmic (eye) BID Jardiance 10 mg tablet 10 mg PO DAILY potassium chloride 10 mEq capsule, extended release 10 meq PO DAILY multivitamin [Once Daily] 1 EACH tablet 1 tab PO DAILY aspirin [Aspirin Low-Strength] 81 MG tablet,chewable 81 mg PO DAILY lisinopril 20 MG tablet 1 tab PO DAILY Qty: 90 4RF amlodipine [Norvasc] 5 MG tablet 1 tab PO QAM Qty: 90 4RF allopurinol 100 MG tablet 2 tab PO DAILY Qty: 180 4RF furosemide 20 mg tablet 20 mg PO DAILY (DME) OneTouch Ultra Test Strip MISCELLANEOUS Patient Comments: USE TO TEST BLOOD SUGAR ONCE DAILY (DME) lancets [OneTouch Delica Plus Lancet] 33 gauge misc MISCELLANEOUS Patient Comments: USE DIRECTED ONCE DAILY TO CHECK BLOOD GLUCOSE Discontinued pravastatin [Pravachol] 20 MG tablet 1 tab PO DAILY Qty: 90 4RF No Action ibuprofen 200 MG tablet 200 mg PO DIRECTED PRN metoprolol succinate 50 mg tablet extended release 24 hr 50 mg PO DAILY Discharge Instructions Instructions: Heart failure with reduced ejection fraction Stand Alone Forms: Nursing Discharge Form Referrals: Jonathon Frederick [Primary Care Provider, Medicine] Referral Note: PCP office will call you to set up a follow up appointment for within 1 to 2 weeks. Charisse Bernardo MD [ [facility] STAFF PHYSICIAN, Cardiology] Referral Note: Office will call you to set up a follow up appointment. Activity:: Activity as Tolerated Equipment/Supplies:: No Equipment Needed Diet:: As Tolerated Discharge Orders Discharge Orders: Discharge Order (Routine); Ordered 12/18/24 Ordered By: Haresh Dodson Discharge Data Discharge Date/Time-TO BE ENTERED AT DEPARTURE: 12/18/24 14:29 DS: Summary Time Spent with Patient providing and/or coordinating discharge services: Less than 30 minutes Status at Discharge Functional status at discharge: independent ambulation Overall status at discharge: patient is back to baseline Mental Status: mental status grossly normal Speech and Movement: speech and movement normal Mood: congruent mood Affect: normal affect Exam Narrative Exam Narrative: General: This is a pleasant man in no distress HEENT: Normocephalic, atraumatic CV: RRR Resp: CTAB Abd: NTND +NBS MSK: voluntary motion x4 Neuro: awake, alert, no focal deficits Psych Mental Status: mental status grossly normal Speech and Movement: speech and movement normal Mood: congruent mood Affect: normal affect DS: Data Vitals/I&O Vitals and I&O: Vital Signs Temperature 37.1 C 12/18/24 11:13 Temperature Source Tympanic 12/18/24 11:13 Pulse 89 12/18/24 11:13 Pulse Rhythm Regular 12/16/24 11:42 Pulse 88 12/16/24 10:20 Respiratory Rate 17 12/18/24 11:13 Respiratory Effort Short of Breath 12/16/24 11:42 Respiratory Depth Normal 12/16/24 11:42 Respiratory Pattern Normal 12/16/24 11:42 Blood Pressure 117/73 12/18/24 11:13 Blood Pressure Mean 87 12/18/24 11:13 Pulse Oximetry 94 12/18/24 11:13 Oxygen Delivery Method Room Air 12/18/24 11:13 Oxygen Flow Rate 0 12/18/24 11:13 Pain Level 0 12/18/24 11:13 Comment rn notified 12/17/24 11:22 Intake & Output 12/17/24 12/18/24 12/18/24 23:59 11:59 23:59 Intake Total 1069.100 / 2484.100 153.966 / 373.966 220 / 373.966 Output Total 1800 / 1800 1050 / 1050 Balance -730.900 / 684.100 -896.034 / -676.034 220 / -676.034 Weight 107.9 kg 107.8 kg Intake: IV 149.100 / 374.100 153.966 / 153.966 Oral 920 / 2110 220 / 220 Output: Urine 1800 / 1800 1050 / 1050 Other: Urine Color Yellow Yellow Urine Appearance Clear Clear Urine Odor Normal None Comment Pt reported voiding into toilet without measuring. Pt verbalized that he will save urine going forward. Stool Size Small Data Completed and Pending Labs on day of discharge: Labs from last 24 hours 12/18/24 12/18/24 12/18/24 06:10 02:30 02:00 APTT 67.8 H Cancelled Sodium 139 Potassium 3.6 Chloride 103 Carbon Dioxide 27.7 Anion Gap 8.3 BUN 26 H Creatinine 0.9 Est GFR (CKD-EPI 2020) 87.96 Glucose 154 H Calcium 8.7 Magnesium 2.1 12/17/24 19:14 APTT 57.7 H Sodium Potassium Chloride Carbon Dioxide Anion Gap BUN Creatinine Est GFR (CKD-EPI 2020) Glucose Calcium Magnesium PFSH All Active Problems (Updated 12/19/24 @ 00:03 by AMINA HAQUE) Thrombocytopenia (Chronic) NSTEMI (non-ST elevated myocardial infarction) (Acute) Left bundle branch block (Acute) Acute CHF (congestive heart failure) (Acute) Lumbar spondylosis (Acute) Mechanical low back pain (Acute) Pain of right sacroiliac joint (Acute) Kidney stone (Acute 01/23/14) Impotence of organic origin (Acute) Elevated glucose (Acute 01/23/14) Medical History Type 2 diabetes mellitus Kidney stone (09/12/12) Alcohol abuse Clostridium difficile diarrhea (01/31/16) Cholelithiasis without obstruction Screening for colon cancer Tubular adenoma 5 tubular adenomas 2008 1 TUBULAR ADENOMA 2011 tubular adenoma with focal high grade dysplasia, 12/11/16; DR. CORTES Rotator cuff syndrome (10/05/08) Osteoarthritis left leg Obesity Impotence Hypertension Hyperlipidemia (09/13/12) Gout Glaucoma Alcohol abuse Surgical History History of colonoscopy (~10/2021) Status post inguinal hernia repair History of extraction of renal calculus hernia repair left Kidney Stone Extraction Colonoscopy - MAC (12/11/16) Colonoscopy - MAC (12/02/11) Family History Mother Diabetes Stroke Father Myocardial infarction Sister Hypothyroidism Grandfather Myocardial infarction Grandfather Myocardial infarction Grandmother No problems noted. Grandmother No problems noted. Brother No problems noted. Social History Smoking/Tobacco Use Status: Never Smoking risk assessment performed?: Yes Alcohol Intake: current Alcohol Intake frequency: 3 or more drinks per day Alcohol type: wine Counseling given: Yes Counseling provided: provider counseling Details: recommended 1 or less/day, he is pre-contemplative Substance use type: former substance user and marijuana Household members: spouse Housing: other What is your relationship status?: Panel score (0-1 are the most socially isolated patients): 1 What type of physical activity do you participate in: none Do you feel safe at home: Yes Do you feel safe in your relationship?: Yes Additional Social history: Lives with in [facility]. Daughter Terra in [facility]. Retired from [employer] Time Spent with Patient Time Spent with Patient: <45 minutes Time was spent: preparing to see the patient(eg.review tests), obtaining and/or reviewing separately otained hiistory, ordering medications,tests, procedures, referring, communicating with other health administrator health care facility, indepentently interpreting results, counseling the patient and care coordination
--- NOTE | 2024-12-18 13:50 | PDOC.CMDIS ---
Date of service: 12/18/24 Time of Service: 13:50 LACE Index Scoring Tool Questions: Length of Stay (in days): 2 Was the patient admitted via the E.D.?: Yes Comorbidities: Congestive Heart Failure E.D. Visits: 1 Answers: Total Score: 8 Risk of Readmission: Low Risk Care Management Discharge Plan Reason for Hospitalization: HFrEF Discharge Plan: Harvey will discharge home with no new services indicated via private vehicle. It is recommended Harvey follow up with community providers and continue per discharge plan of care. Patient/Family Education Needs: Review of discharge instructions activity, and plan of care. Discuss ask me three.
== END 2024-12-18 14:29 | disposition home or self-care (01) | DRG 280 ==
LOC: ER 07:44 → MS 11:41
PROVIDERS: Family Medicine; Admitting Provider Family Medicine; Emergency Provider Student in an Organized Health Care Education/Training Program; PCP Physician Assistant; Responsible Provider Family Medicine; Visit Provider Family Medicine
DX: I21.4 Non-ST elevation (NSTEMI) myocardial infarction (principal); I50.21 Acute systolic (congestive) heart failure; I11.0 Hypertensive heart disease with heart failure; E78.5 Hyperlipidemia, unspecified; E11.9 Type 2 diabetes mellitus without complications; D69.6 Thrombocytopenia, unspecified; I44.7 Left bundle-branch block, unspecified; M10.9 Gout, unspecified; M47.816 Spondylosis without myelopathy or radiculopathy, lumbar region; F10.10 Alcohol abuse, uncomplicated; E66.9 Obesity, unspecified; Z86.0101 Personal history of adenomatous and serrated colon polyps; Z79.84 Long term (current) use of oral hypoglycemic drugs
CPT/HCPCS: 00123; 36415; 80048; 80053; 82805; 85027; 93005; 93308; 96372; 96374; 96376; 99285; J1650; 71045; 82607; 83036; 83735; 83880; 84484; 84550; 85025; 85610; 85730; 93010; 93306; 99222; 99232; 99238; J1644; J1938

== ENCOUNTER 2024-12-29 12:47 | Outpatient (CLI) | payer MEDICARE, SELFPAY ==
--- NOTE | 2024-12-29 12:45 | RT.EKG_ITS ---
APPROVED REPORT Exam: Resting ECG Reason for Exam: NPW Baseline needed Patient Location: O HR:83 bpm ECG Measurements Heart Rate 83 AXIS MD 158 P 18 QRSd 154 QRS 33 QT 418 T 199 QTc 492 Conclusion Sinus rhythm...normal P axis, V-rate 50- 99 Left bundle branch block...QRSd>120, broad/notched R
== END 2024-12-29 12:48 | disposition home or self-care (01) ==
LOC: DI.CARD 12:51
PROVIDERS: PCP Physician Assistant; Referring Provider Physician Assistant; Visit Provider Internal Medicine Cardiovascular Disease
DX: R06.09 Other forms of dyspnea (principal); I10 Essential (primary) hypertension; I50.22 Chronic systolic (congestive) heart failure; I21.4 Non-ST elevation (NSTEMI) myocardial infarction; I44.7 Left bundle-branch block, unspecified
CPT/HCPCS: 93010

== ENCOUNTER → 2024-12-29 12:47 | Outpatient (BNVA) | payer MEDICARE, SELFPAY | PROVIDERS: PCP Physician Assistant; Referring Provider Physician Assistant; Visit Provider Internal Medicine Cardiovascular Disease | DX: I35.0 Nonrheumatic aortic (valve) stenosis (principal); I50.22 Chronic systolic (congestive) heart failure; I25.10 Atherosclerotic heart disease of native coronary artery without angina pectoris; I21.4 Non-ST elevation (NSTEMI) myocardial infarction; I10 Essential (primary) hypertension | CPT/HCPCS: 99214; 93005 ==

== ENCOUNTER 2025-01-04 02:34 | Outpatient (CLI) | payer MEDICARE, SELFPAY ==
--- NOTE | 2025-01-04 06:00 | DI.NM_ITS ---
APPROVED REPORT Exam: Pharmacologic Patient Location: Out-Patient Room/Bed: Stress Nurse: Yesika Singleton RN Ordering Provider:WOOD BERNARDO, Contact Number: BMI: 38.57 Baseline Rhythm: Sinus Rhythm, LBBB Indications: CAD, LV dysfunction Medical History Medical History: DMT2, kidney stone, alcohol abuse, obeisty, glaucoma, HLD, HTN, CAD, aortic stenosis, thrombocytopenia. CHF, LBBB, EF 35-40% Cardiac Medications: Allopurinol, asipirin, atorvastatin, jardiance, furosemide, lisinopril, potassium chloride, spironolactone Allergies: NKA Cardiac Risk Factors: Family hx, HN, HLD, CVD, obesity Previous Cardiac Procedures: None Pretest Chest Pain Characteristics: None Exercise History: Sedentary Physical Disabilities: Patient states he is unable to walk on treadmill Lung Sounds: Clear to auscultation Heart Sounds: Regular Stress Test Details Test: Pharmacologic stress testing performed using 0.4 mg of regadenoson per 5 mL given IV over 10 seconds. Reason for pharmacologic stress test: physical limitation. Nuclear Acquisition: Rest Tc-99m/Stress Tc-99m 1 day Rest Isotope: Tc-99m Sestamibi. Dose: 12.3 Date: 01/04/2025 Injection Time: 0910 Stress Isotope: Tc-99m Sestamibi. Dose: 36.5 Date: 01/04/2025 Injection Time: 1040 HR Resting HR Supine: 81 bpm Max Heart Rate (APMHR): 143 bpm Target HR (85% APMHR): 122 bpm Max HR Achieved: 91 bpm % of APMHR: 64 Recovery HR: 90 bpm BP Resting BP Supine: 104/52 mmHg Max BP: 104/52 mmHg Recovery BP: 94/68 mmHg ECG Resting ECG: Sinus Rhythm, LBBB Stress ECG: Sinus Rhythm, LBBB ST Change: Nondiagnostic low heart rate Recovery ECG: Sinus Rhythm, LBBB Recovery ST Change: Nondiagnostic low heart rate Clinical Stress Symptoms: Mild SOB Angina Score: None Rate Pressure Product: 9464 Stress ECG Conclusion 1. Resting electrocardiogram showed a left bundle branch block 2. Patient underwent testing using pharmacologic stress with regadenoson 3. Peak heart rate achieved was 64% of maximal predicted for age 4. Electrocardiographic portion of the test was nondiagnostic 5. See MPI report Stress Test Summary STAGE HR BP SpO2 Symptoms NOTES Supine 81 104/52 95% 1 min post Lexiscan injection 90 100/60 95% 3 min post Lexiscan injection 90 90/58 95% 6 min post Lexiscan injection 90 94/68 96% Patient reported he was unable to use treadmill so lázaro protocol performed. Resting EKG sent to Dr. Bernardo to view, patient resting comfortable on stretching prior to test, LS clear, HR reg, denies chest pain, SOB or any other symptoms. OK to proceed with test per Dr. Bernardo. Mild SOB reported by patient approx 1 min s/p lázaro injection. All symptoms resolved by test end and patient proceeded to imaging ambulatory in no apparent distress. MPI Conclusion Myocardial perfusion is abnormal. There is some degree of infarction involving the anterior apical and septal siegel. There is no significant ischemia Calculated EF is 18%. LV is enlarged. There is akinesis to dyskinesis of the anteroapical segments
[2025-01-04] MEDS: Regadenoson 0.4 MG/5 ML SYR IVP (11:10)
== END 2025-01-04 02:54 ==
LOC: DI 02:34
PROVIDERS: PCP Physician Assistant; Visit Provider Internal Medicine Cardiovascular Disease
DX: I25.10 Atherosclerotic heart disease of native coronary artery without angina pectoris (principal)
CPT/HCPCS: 78452; 93016; 93018; 93017; J2785

== ENCOUNTER → 2025-01-23 09:41 | Outpatient (BNVA) | payer MEDICARE, SELFPAY | PROVIDERS: PCP Physician Assistant; Referring Provider Physician Assistant; Visit Provider Internal Medicine Cardiovascular Disease | DX: I25.10 Atherosclerotic heart disease of native coronary artery without angina pectoris (principal); I35.0 Nonrheumatic aortic (valve) stenosis; I50.22 Chronic systolic (congestive) heart failure | CPT/HCPCS: 99214 ==